=== PATIENT | male | born 1965 | race Caucasian/White ===

== ENCOUNTER → 2020-02-26 12:10 | Outpatient (CLI) | payer OTHER, SELFPAY ==
[2020-02-27 16:13] LABS: Covid-19 Nasal PCR Sendout Lex NOT DETECTED
== END ==
PROVIDERS: Visit Provider Internal Medicine Adolescent Medicine
DX: Z03.818 Encounter for observation for suspected exposure to other biological agents ruled out (principal)
CPT/HCPCS: U0004

== ENCOUNTER → 2020-03-26 17:43 | Outpatient (CLI) | payer OTHER, SELFPAY | PROVIDERS: PCP Emergency Medicine; Visit Provider Family Medicine | DX: Z20.828 Contact with and (suspected) exposure to other viral communicable diseases (principal) | CPT/HCPCS: U0003 ==

== ENCOUNTER → 2020-09-24 17:41 | Outpatient (CLI) | payer OTHER, SELFPAY ==
[2020-09-24 18:00] LABS: Basophils % 0.7 % (0.1-2.0); Eosinophils # 0.4 K/mm3 (0.0-0.4); Eosinophils % 5.6 % (0.1-12.0); Hematocrit 41.5 % (42.0-52.0); Lymphocytes # 1.8 K/mm3 (0.7-4.5); Lymphocytes % 27.8 % (10-50); Mean Corpuscular HGB Conc 33.9 g/dL (31.8-35.4); Mean Corpuscular Hemoglobin 29.9 pg (27.0-31.2); Mean Corpuscular Volume 88.3 fl (80-94); Mean Platelet Volume 7.5 fl (7.4-10.4); Monocytes # 0.5 K/mm3 (0.1-1.0); Neutrophils # 3.8 K/mm3 (1.8-7.8); Neutrophils % 57.9 % (37.0-80.0); Platelet Count 315 K/mm3 (142-424); White Blood Count 6.5 K/mm3 (4.8-10.8)
[2020-09-24 18:30] LABS: Alanine Aminotransferase 19 U/L (12-78); Albumin Level 4.2 g/dl (3.5-5.0); Alkaline Phosphatase 71 U/L (38-126); Aspartate Amino Transferase 23 U/L (17-59); Bilirubin,Indirect 0.3 mg/dL (0.0-0.9); Bilirubin,Total 0.3 mg/dl (0.2-1.3); Bilirubin,Unconjugated 0.3 mg/dL (0.0-1.1); Total Protein,Serum 6.4 g/dl (6.3-8.2)
[2020-10-03 10:41] LABS: Testosterone, Total, LC/MS 190.4 ng/dL (264.0-916.0); Testosterone,Free 2.4 pg/mL (7.2-24.0)
== END ==
PROVIDERS: Visit Provider Urology
DX: E34.9 Endocrine disorder, unspecified (principal); Z12.5 Encounter for screening for malignant neoplasm of prostate
CPT/HCPCS: 80076; 84402; 84403; 85025; G0103

== ENCOUNTER 2020-10-04 16:58 | Day surgery (SDC) | payer OTHER, SELFPAY ==
[2020-10-04] VITALS (17 sets, daily range): BP systolic 97–144; BP diastolic 49–88; PULSE 51–76; RESP 12–18; TEMP 36.4–36.9; O2SAT 90–99; BMI 27.9; BMI 28.7
--- NOTE | 2020-10-04 | IR_ITS ---
APPROVED REPORT Patient Location: Emergent Creative Intern: STERLING Thompson RT (R) PROCEDURES Left heart catheterization Left ventriculogram Selective coronary angiogram INDICATION Known coronary artery disease, Unstable angina Informed consent was obtained prior to the procedure. COMPLICATIONS NONE Estimated Blood Loss: LESS THAN 10 ML TECHNIQUE One percent lidocaine used to anesthetize the right anterior aspect of the wrist. The right radial artery was accessed via the Seldinger technique. A 6 Kittitian sheath was placed in the right radial artery. 2.5 mg of verapamil, 800 mcg of nitroglycerin, 1mg Lidocaine and 5000 U Heparin were given through the arterial sheath. A [email or web address] catheter was also used to perform left heart catheterization, left ventriculogram and selective coronary angiogram. At the end of the procedure the sheath was removed good hemostasis was achieved using Traclet band, patient was transferred to the postop holding area in stable condition. ANGIOGRAPHIC RESULTS The left main artery Has a smooth ostial 10 to 20% narrowing which may be more anatomical rather than atherosclerotic The left anterior descending artery Has mild proximal and mid vessel 10% luminal irregularities. There is a small mid vessel myocardial bridge during systole which compresses to 40% The circumflex artery Nondominant with mild 10% luminal irregularities The right coronary artery Is a large dominant vessel with a widely patent stent in the proximal segment with no evidence of in-stent restenosis with excellent proximal distal transitioning. The remaining vessel has mild vascular ectasia. Distally an Robert current is identified with no atherosclerotic plaque The SALDA[place]A ventriculogram reveals Normal 65% The left ventricular end-diastolic pressure 10 mmHg IMPRESSION Widely patent stent in the proximal dominant right coronary artery with no evidence of in-stent restenosis and excellent proximal distal transitioning Clinically inconsequential mid LAD myocardial bridge Mild vascular ectasia in the right coronary artery which is also clinically insignificant and clinically inconsequential Normal ejection fraction Normal left ventricular end-diastolic pressure PLAN 1. Continue medical management for coronary disease 2. Evaluation of noncardiac symptomatology Electronically signed by : Levi Morrow, 10/04/2020 18:06:51
--- NOTE | 2020-10-04 16:54 | ECG_ITS ---
APPROVED REPORT Exam: Resting ECG HR:62 bpm ECG Measurements Heart Rate 62 AXES NH 152 P 20 QRSd 84 QRS -16 QT 408 T 34 QTc 414 Conclusion Normal sinus rhythm Normal ECG Electronically signed by : Alexei Mortensen, 10/05/2020 07:40:49
--- NOTE | 2020-10-04 17:04 | XR_ITS ---
PROCEDURE: XR CHEST PORTABLE CLINICAL HISTORY: cough COMPARISON: CR XR CHEST 2V from 11/06/2019 FINDINGS: The cardiomediastinal silhouette and pulmonary vascularity are within normal limits. The lungs are clear without infiltrates, suspicious nodules, or pleural effusions. No acute bony abnormalities. IMPRESSION: No acute findings. Dictated by: Dr. Honorio Arora MD 10/05/2020 08:07 Dr. Honorio Arora MD in [place] 10/05/2020 08:07
--- NOTE | 2020-10-04 17:11 | HMH.EDCP ---
ED Disposition Clinical Impression: Unstable angina Disposition: Admitted As Inpatient Condition on Discharge: Serious - Critical Care Critical Care Time: No Attestation: On 10/04/20, the high probability of a clinically significant, sudden or life threatening deterioration of the following system(s) required my full and direct attention, intervention and personal management. The time I documented below is in addition to time spent performing reported procedures but includes the following listed in this critical care notation. Medical Decision Making - Medical Records Medical records reviewed: Yes: I reviewed the patient's medical records. - Julius Inquiry Pt receiving controlled substance: No Vital Signs: 10/04/20 16:58 10/04/20 17:38 Temperature 98.3 F 98.1 F Temperature Source Tympanic Oral Pulse Rate 67 Pulse Rate [Right] 60 Respiratory Rate 18 18 Blood Pressure 127/72 Blood Pressure [Right Arm] 144/88 H Blood Pressure Mean [Right Arm] 106 02 Sat by Pulse Oximetry 98 Oxygen Delivery Method Room Air Room Air - Lab Data Lab Results 10/04/20 17:00: WBC 9.3, RBC 5.28, Hgb 15.6, Hct 47.4, MCV 89.8, MCH 29.6, MCHC 33.0, RDW 14.6, Plt Count 338, MPV 7.2 L, Neut % (Auto) 61.0, Lymph % (Auto) 26.3, [place] % (Auto) 7.6, Eos % (Auto) 4.2, Baso % (Auto) 0.9, Neut # (Auto) 5.7, Lymph # (Auto) 2.5, [place] # (Auto) 0.7, Eos # (Auto) 0.4, Baso # (Auto) 0.1 10/04/20 17:00: PT 10.8, INR 0.91, APTT 25.0 10/04/20 17:00: Sodium 142, Potassium 3.9, Chloride 105, Carbon Dioxide 31 H, Anion Gap 9.9, BUN 9, Creatinine 0.90, Estimated Creat Clear 119, Estimated GFR 88, Est GFR ( Amer) 106, Glucose 111 H, Calcium 9.7, Total Bilirubin 0.5, AST 30, ALT 27, Alkaline Phosphatase 66, Troponin I < 0.01, NT-Pro-B Natriuret Pep 35.8, Total Protein 7.5, Albumin 4.8, Globulin 2.7, Albumin/Globulin Ratio 1.8, Lipase 293 Result diagrams: 10/04/20 17:00 10/04/20 17:00 Orders (Tests/Meds): ED MEDICATIONS Generic Name Dose Route Start Last Admin Trade Name Freq PRN Reason Stop Dose Admin Diphenhydramine HCl 50 mg 10/04/20 17:03 10/04/20 17:40 Diphenhydramine 50mg/Ml Vial IV 10/04/20 17:04 50 mg ONCE ONE Administration Fentanyl Citrate 25 mcg 10/04/20 17:03 10/04/20 17:59 Fentanyl 250mcg/5ml Vial IV 10/05/20 17:03 25 mcg Q3MINP PRN Administration Moderate to Severe Pain Fentanyl Citrate 50 mcg 10/04/20 17:03 Fentanyl 250mcg/5ml Vial IV 10/05/20 17:03 Q3MINP PRN Moderate to Severe Pain Flumazenil 0.2 mg 10/04/20 17:03 Flumazenil 0.1mg/Ml 5ml Vial IV 10/04/20 23:00 NEEDED PRN Sedation Heparin Sodium (Porcine) 10,000 unit 10/04/20 17:03 10/04/20 17:41 Heparin 1,000 Units/Ml 10ml Vial (Registrar Assistant) IV 10/04/20 21:03 5,000 unit NEEDED PRN Administration Emergency Box Consumer Education Specialist Heparin Sodium/Sodium Chloride 3,000 unit 10/04/20 17:03 10/04/20 17:41 Heparin 1,000 Units/500ml Ns (Registrar Assistant) IV 10/04/20 17:04 3,000 unit ONCE ONE Administration Sodium Chloride 1,000 mls @ 25 mls/hr 10/04/20 17:15 10/04/20 17:41 Sod Chlor 0.9% 1000ml Bag IV 10/05/20 17:03 25 mls/hr .Q25H TRAVIS Administration Lidocaine HCl 20 ml 10/04/20 17:03 10/04/20 17:47 Lidocaine 1% 5ml Pf Vial IJ 10/04/20 17:04 Not Given ONCE ONE Lidocaine HCl 20 ml 10/04/20 17:03 10/04/20 17:40 Lidocaine 1% 10ml Mdv IJ 10/04/20 17:04 10 ml ONCE ONE Administration Midazolam HCl 1 mg 10/04/20 17:03 Midazolam 2mg/2ml Vial IV 10/05/20 17:03 Q3MINP PRN Sedation Midazolam HCl 1 mg 10/04/20 17:03 10/04/20 17:59 Midazolam Hcl 1mg/1ml 5ml Vial IV 10/05/20 17:03 1 mg Q3MINP PRN Administration Sedation Naloxone HCl 0.4 mg 10/04/20 17:03 Naloxone 0.4mg/Ml Vial IV 10/05/20 17:03 Q5MINP PRN Decreased Respirations Nitroglycerin 800 mcg 10/04/20 17:03 10/04/20 17:40 Nitroglycerin 800mcg/8ml Syr (Registrar Assistant) IV
[2020-10-04 17:12] LABS: Basophils # 0.1 K/mm3 (0-0.2); Basophils % 0.9 % (0.1-2.0); Eosinophils # 0.4 K/mm3 (0.0-0.4); Eosinophils % 4.2 % (0.1-12.0); Hematocrit 47.4 % (42.0-52.0); Hemoglobin 15.6 g/dL (14.1-18.0); Lymphocytes # 2.5 K/mm3 (0.7-4.5); Lymphocytes % 26.3 % (10-50); Mean Corpuscular Hemoglobin 29.6 pg (27.0-31.2); Mean Corpuscular Volume 89.8 fl (80-94); Mean Platelet Volume 7.2 fl (7.4-10.4); Monocytes # 0.7 K/mm3 (0.1-1.0); Monocytes % 7.6 % (1.7-9.3); Neutrophils # 5.7 K/mm3 (1.8-7.8); Platelet Count 338 K/mm3 (142-424); Red Blood Count 5.28 M/mm3 (4.60-6.20); Red Cell Distribution Width 14.6 % (11.5-17.5); White Blood Count 9.3 K/mm3 (4.8-10.8)
[2020-10-04 17:15] LABS: Chloride 105 mmol/L (98-107); Potassium 3.9 mmoL/L (3.5-5.1); Sodium 142 mmol/L (136-145)
[2020-10-04 17:18] LABS: Alanine Aminotransferase 27 U/L (12-78); Albumin Level 4.8 g/dl (3.5-5.0); Albumin/Globulin Ratio 1.8 (1.1-1.8); Alkaline Phosphatase 66 U/L (38-126); Anion Gap 9.9 mEq/L (5-15); Aspartate Amino Transferase 30 U/L (17-59); Bilirubin,Total 0.5 mg/dl (0.2-1.3); Blood Urea Nitrogen 9 mg/dl (9-20); Calcium 9.7 mg/dl (8.4-10.2); Carbon Dioxide 31 mmol/L (22.0-30.0); Creatinine Clearance Estimated 119 mL/min (50-200); Estimated Glomerular Filt Rate 88 ml/min (>60); GFR (African American) 106 ML/MIN (>60); Globulin 2.7 g/dL (1.3-3.2); Glucose 111 mg/dl (74-100); Lipase 293 U/L (23-300); Total Protein,Serum 7.5 g/dl (6.3-8.2)
[2020-10-04 17:27] LABS: INR 0.91 (0.9-1.1); Prothrombin Time 10.8 seconds (10.1-12.5)
[2020-10-04 17:30] LABS: NT Pro Brain Natriuretic Pep. 35.8 pg/mL (0-125)
[2020-10-04 17:34] LABS: Troponin I < 0.01 ng/ml (0.00-0.034)
--- NOTE | 2020-10-04 18:50 | PC.NURSE ---
PER CHEMICAL PACKAGER STAFF, PT DOES NOT NEED TO BE ADMITTED PER MD. Nikolai LOVE RN (SALES LEADER) STATES SHE IS CONTACTING MD BRICEÑO.
--- NOTE | 2020-10-04 21:53 | PC.NURSE ---
Pt currently resting in bed at this time. Tracelet remains on at this time with 9 ml of air. Attempted to withdraw air out and incision site was noted to seep blood. VSS. No other concerns. Will continue to monitor.
[2020-10-05 00:25] VITALS: BP 103/63; PULSE 63; RESP 16; O2SAT 95
--- NOTE | 2020-10-05 01:16 | PC.NURSE ---
Tracelet was removed from pt after 0 ml of air remained. 2x2 and tegaderm applied to (R) radial cath site. No bleeding or hematoma noted. Immobilizer placed on (R) arm after pt got dressed into regular clothes. VS obtained and stable. Pt was assisted to WC and left floor at 0054 and assisted to passenger side of car. Significant other to drive.
--- NOTE | 2020-10-09 11:12 | HMH.CNCARD ---
History of Present Illness Consult date: 10/09/20 Requesting physician: Calvin Sprague Chief complaint: chest pain History of present illness: This is a 55 year old white male who presented to the ED with complaints of chest pain approximately 1 hour prior to arrival. this is a sudden onset of pressure in the substernal aspect of the chest. there was no radiation. associated with SOA. Known history of CAD with 1 stent in the past. he also states he has been having worsening SOA x1 week prior to the onset of angina. CP improved with 4 baby aspirin and 1 ntg SL tablet. nothing worsened pain. this was severe. denies fever, chills, n/v/d, pnd or orthopnea. denies edema or syncope. similar symptoms when he needed previous stenting. [facility] History I have reviewed the patient's past medical history: Yes Medical History: Reports:: Anxiety, Atherosclerotic Heart Disease, Coronary Artery Disease, Hyperlipidemia, Hypertension *Have you ever received a pneumonia vaccine?: No *Have you received a flu vaccine this season?: Yes Comment:: diverticulitis Other Surgeries: Yes: Cardiac Catheterization (1 stent- 06.21.2015), Other (sinus/nose surgery) Amputation: No - *Social History Last grade of school completed: Advanced degree Smoking Status: Never smoker Alcohol Intake Frequency:: holidays/special occasions only Substance Use Type: denies use *Occupational Status:: employed *Travel in the last 8 weeks: None Family Hx:: Heart Attack (father had MT at age 43) Meds Home Medications Medication Instructions Recorded Confirmed Type Atorvastatin Calcium [Lipitor 20mg 20 mg PO DAILY 10/04/20 10/04/20 History Tab] Sildenafil Citrate [Viagra] 25 mg PO NEEDED PRN 10/04/20 10/04/20 History Testosterone 200 mg IM DIRECTED 10/04/20 10/04/20 History Triazolam 0.25 mg PO NEEDED PRN 10/04/20 10/04/20 History diazePAM [diazePAM 5mg Tablet] 5 mg PO NEEDED PRN 10/04/20 10/04/20 History Allergies Allergy/AdvReac Type Severity Reaction Status Date / Time No Known Allergies Allergy Unverified 06/22/17 14:20 Exam Vital signs and Labs for Last 24 Hours: Temp Pulse Resp BP Pulse Ox 97.9 F 63 16 103/63 L 95 10/04/20 23:24 10/05/20 00:25 10/05/20 00:25 10/05/20 00:25 10/05/20 00:25 Narrative: EKG is SR with a rate of 62. - Constitutional no acute distress, average body habitus - *Routine HEENT Exam Head: Present: normocephalic, atraumatic Eye: Present: EOMI, PERRL ENT: Present: mucous membranes moist - *Routine Neck Exam Present: supple, full ROM, normal carotid upstroke. Absent: JVD, carotid bruit, lymphadenopathy - *Routine Respiratory Exam Present: CTA bilaterally - *Routine Cardiovascular Exam Present: RRR, Normal S1, Normal S2. Absent: murmur - *Routine Abdominal Exam Present: soft, normoactive bowel sounds. Absent: tenderness, distended - *Routine Extremities Exam Present: full ROM, pulses intact, normal capillary refill. Absent: cyanosis, clubbing, edema - *Routine Skin Exam Present: intact, warm. Absent: erythema, rash - *Routine Neurological Exam Present: alert, oriented X3, CN II-XII intact. Absent: sensory deficit, motor deficit - Routine Psychiatric Exam Present: normal affect, normal thought process Review of Systems - Review of Systems Review of systems:: pertinent systems reviewed and negative unless documented below - Constitutional Reports lack of energy - *Cardiovascular Reports chest pain, Reports chest pain at rest, Reports chest pain with activity, Reports shortness of breath, Reports shortness of breath with activity - *Respiratory Reports shortness of breath, Reports shortness of breath with activity - *Neurologic Denies headache(s) Assessment and Plan (1) Unstable angina Status: Acute Category: Medical Code(s): I20.0 - Unstable angina (2) SOB (shortness of breath) Status: Acute Category: Medical Code(s): R06.02 - Shortness of breath
== END 2020-10-04 17:24 ==
LOC: ER 17:24 → SDC 17:25 → 2ND 18:11 → SDC 08-03 02:03
PROVIDERS: Emergency Provider Emergency Medicine; Visit Provider Internal Medicine
DX: I25.110 Atherosclerotic heart disease of native coronary artery with unstable angina pectoris (principal); Z95.5 Presence of coronary angioplasty implant and graft; Z79.899 Other long term (current) drug therapy
CPT/HCPCS: 71045; 80053; 83690; 83880; 84484; 85025; 85610; 85730; 93005; 93458; 99152; 99203; C1725; C1769; G0463; J1644; Q9967

== ENCOUNTER 2021-08-05 12:29 | Emergency (ER) | payer OTHER, SELFPAY ==
[2021-08-05 12:36] VITALS: BP 143/81; PULSE 74; RESP 18; TEMP 37.1; O2SAT 95; BMI 27.3
--- NOTE | 2021-08-05 12:48 | HMH.EDABDPAI ---
ED Disposition Clinical Impression: Gastroenteritis, Abdominal cramping Disposition: Home, Self-Care Condition on Discharge: Good Instructions: DI for Acute Abdominal Pain Prescriptions: Dicyclomine HCl [Bentyl 10mg capsule] 10 mg PO QID PRN #30 cap PRN Reason: Cramping Transmission Status: Re[facility] Referrals: Jose Daniel Munoz MD [Primary Care Provider] - - Critical Care Critical Care Time: No Attestation: On 08/05/21, the high probability of a clinically significant, sudden or life threatening deterioration of the following system(s) required my full and direct attention, intervention and personal management. The time I documented below is in addition to time spent performing reported procedures but includes the following listed in this critical care notation. Medical Decision Making - Medical Records Medical records reviewed: Yes: I reviewed the patient's medical records. - Julius Inquiry Pt receiving controlled substance: No Vital Signs: 08/05/21 12:36 08/05/21 13:03 08/05/21 14:03 Temperature 98.8 F Temperature Source Oral Pulse Rate 76 77 Pulse Rate [Left Radial] 74 Respiratory Rate 18 Blood Pressure 127/75 135/80 Blood Pressure [Right Arm] 143/81 H Blood Pressure Mean [Right Arm] 101 Blood Pressure Source [Right Arm] Automatic Cuff Blood Pressure Position [Right Arm] Sitting 02 Sat by Pulse Oximetry 95 91 L 96 Oxygen Delivery Method Room Air Room Air Room Air 08/05/21 15:24 08/05/21 15:29 Temperature 98.2 F Temperature Source Oral Pulse Rate 71 68 Pulse Rate [Left Radial] Respiratory Rate 16 Blood Pressure 134/76 134/76 Blood Pressure [Right Arm] Blood Pressure Mean [Right Arm] Blood Pressure Source [Right Arm] Blood Pressure Position [Right Arm] 02 Sat by Pulse Oximetry 93 L Oxygen Delivery Method Room Air Room Air - Lab Data Lab Results 08/05/21 12:45: WBC 8.2, RBC 5.02, Hgb 15.7, Hct 46.6, MCV 92.7, MCH 31.2, MCHC 33.6, RDW 14.3, Plt Count 345, MPV 7.4, Neut % (Auto) 75.5, Lymph % (Auto) 12.3, Dare % (Auto) 8.1, Eos % (Auto) 3.5, Baso % (Auto) 0.7, Neut # (Auto) 6.2, Lymph # (Auto) 1.0, Dare # (Auto) 0.7, Eos # (Auto) 0.3, Baso # (Auto) 0.1 08/05/21 12:45: Sodium 136, Potassium 4.2, Chloride 106, Carbon Dioxide 25, Anion Gap 9.2, BUN 10, Creatinine 0.90, Estimated Creat Clear 119, Estimated GFR 87, Est GFR ( Amer) 106, Glucose 110 H, Calcium 8.8, Total Bilirubin 0.6, AST 38, ALT 30, Alkaline Phosphatase 61, Total Protein 6.8, Albumin 4.2, Globulin 2.6, Albumin/Globulin Ratio 1.6, Lipase 78 08/05/21 12:45: SARS-CoV-2 (PCR) Not detected, Influenza A Untype (PCR) Not detected, Influenza Type B (PCR) Not detected 08/05/21 13:10: Lactate 1.3 Result diagrams: 08/05/21 12:45 08/05/21 12:45 Orders (Tests/Meds): ED MEDICATIONS Discontinued Medications Generic Name Dose Route Start Last Admin Trade Name Freq PRN Reason Stop Dose Admin Dicyclomine HCl 20 mg 08/05/21 14:19 08/05/21 14:22 Dicyclomine 10mg Capsule PO 08/05/21 14:20 20 mg ONCE ONE Administration Hydromorphone HCl 1 mg 08/05/21 12:46 08/05/21 12:58 Hydromorphone 2mg/Ml Syringe IV 08/05/21 12:47 1 mg ONCE ONE Administration Sodium Chloride 1,000 mls @ 999 mls/hr 08/05/21 13:00 08/05/21 13:01 Sod Chlor 0.9% 1000ml Bag IV 08/05/21 14:00 Not Given .Q1H1M TRAVIS Sodium Chloride 500 mls @ 999 mls/hr 08/05/21 13:00 08/05/21 13:01 Sod Chlor 0.9% 1000ml Bag IV 08/05/21 13:30 Not Given .Q31M TRAVIS Sodium Chloride 2,000 mls @ 999 mls/hr 08/05/21 13:15 08/05/21 13:04 Sod Chlor 0.9% 1000ml Bag IV 08/05/21 15:15 999 mls/hr .Q2H1M TRAVIS Administration Metoclopramide HCl 10 mg 08/05/21 12:46 08/05/21 12:59 Metoclopramide Hcl 10mg/2ml Vial IVP 08/05/21 12:47 10 mg ONCE ONE Administration Ondansetron HCl 8 mg 08/05/21 12:46 08/05/21 12:58 Ondansetron 4mg/2ml Vial IV 08/05/21 12:47 8 mg ONCE
[2021-08-05 12:52] LABS: Basophils # 0.1 K/mm3 (0-0.2); Basophils % 0.7 % (0.1-2.0); Eosinophils # 0.3 K/mm3 (0.0-0.4); Eosinophils % 3.5 % (0.1-12.0); Hematocrit 46.6 % (42.0-52.0); Hemoglobin 15.7 g/dL (14.1-18.0); Lymphocytes % 12.3 % (10-50); Mean Corpuscular HGB Conc 33.6 g/dL (31.8-35.4); Mean Corpuscular Hemoglobin 31.2 pg (27.0-31.2); Mean Corpuscular Volume 92.7 fl (80-94); Mean Platelet Volume 7.4 fl (7.4-10.4); Monocytes # 0.7 K/mm3 (0.1-1.0); Monocytes % 8.1 % (1.7-9.3); Neutrophils # 6.2 K/mm3 (1.8-7.8); Neutrophils % 75.5 % (37.0-80.0); Platelet Count 345 K/mm3 (142-424); Red Blood Count 5.02 M/mm3 (4.60-6.20); Red Cell Distribution Width 14.3 % (11.5-17.5); White Blood Count 8.2 K/mm3 (4.8-10.8)
[2021-08-05 12:54] LABS: Chloride 106 mmol/L (98-107); Sodium 136 mmol/L (136-145)
[2021-08-05 12:55] LABS: Potassium 4.2 mmoL/L (3.5-5.1)
[2021-08-05 12:57] LABS: Alanine Aminotransferase 30 U/L (12-78); Alkaline Phosphatase 61 U/L (38-126); Anion Gap 9.2 mEq/L (5-15); Aspartate Amino Transferase 38 U/L (17-59); Bilirubin,Total 0.6 mg/dl (0.2-1.3); Blood Urea Nitrogen 10 mg/dl (9-20); Carbon Dioxide 25 mmol/L (22.0-30.0); Creatinine Clearance Estimated 119 mL/min (50-200); Estimated Glomerular Filt Rate 87 ml/min (>60); GFR (African American) 106 ML/MIN (>60); Lipase 78 U/L (23-300)
[2021-08-05 12:58] LABS: Albumin Level 4.2 g/dl (3.5-5.0); Albumin/Globulin Ratio 1.6 (1.1-1.8); Calcium 8.8 mg/dl (8.4-10.2); Globulin 2.6 g/dL (1.3-3.2); Glucose 110 mg/dl (74-100); Total Protein,Serum 6.8 g/dl (6.3-8.2)
[2021-08-05 13:03] VITALS: BP 127/75; PULSE 76; O2SAT 91
--- NOTE | 2021-08-05 13:09 | PC.NURSE ---
Lab at bedside
[2021-08-05 13:22] LABS: Coronavirus 19, PCR Not Detected (NotDetected); Influenza A, PCR Not Detected (NotDetected); Influenza B, PCR Not Detected (NotDetected)
[2021-08-05 13:32] LABS: Lactic Acid 1.3 mmol/L (0.7-2.1)
[2021-08-05 14:03] VITALS: BP 135/80; PULSE 77; O2SAT 96
[2021-08-05 15:24] VITALS: BP 134/76; PULSE 71; O2SAT 93
[2021-08-05 15:29] VITALS: BP 134/76; PULSE 68; RESP 16; TEMP 36.8; O2SAT 95
== END 2021-08-05 15:30 | disposition home or self-care (01) ==
PROVIDERS: Emergency Provider Emergency Medicine; PCP Emergency Medicine
DX: K52.9 Noninfective gastroenteritis and colitis, unspecified (principal); F41.9 Anxiety disorder, unspecified; I10 Essential (primary) hypertension
CPT/HCPCS: 36415; 80053; 83605; 83690; 85025; 96365; 96366; 99282; C9803; J2405; U0003; U0005

== ENCOUNTER 2022-07-22 10:14 | Day surgery (SDC) | payer OTHER, SELFPAY ==
[2022-07-22] VITALS (7 sets, daily range): BP systolic 100–142; BP diastolic 67–90; PULSE 72–94; RESP 16–18; TEMP 36.1–36.4; O2SAT 93–96; BMI 28.7
--- NOTE | 2022-07-22 11:19 | P.PN_ITS ---
[facility] Disclaimer: The information contained in this section may have been updated after the patient was seen, as this information can be updated by other users. Medical History (Updated 07/22/22 @ 10:55 by Greg Sheikh RN) CAD (coronary artery disease) HLD (hyperlipidemia) Insomnia Pancreatitis Surgical History (Updated 07/22/22 @ 10:56 by Greg Sheikh RN) History of sinus surgery History of surgery Family History (Updated 07/22/22 @ 10:57 by Greg Sheikh RN) Other Family history of coronary artery disease Family history of thyroid cancer Social History (Updated 07/22/22 @ 10:58 by Greg Sheikh RN) Smoking Status: Never smoker alcohol intake: never substance use type: denies use current occupational status: employed Travel in the last 8 weeks: Outside the [facility] Anesthesia Checklist Patient Identification Patient Identification: Arm Band Structural Data Admitted From: Home Planned Operative Procedure/s: colonoscopy Consent for Planned Operative Procedure(s) Verified: Yes Verified Documents: Surgical Consent and History and Physical NPO Status Verified Time NPO: 00:00 Additional verifications Anesthesia Reactions: No Airway Assessment C-Spine Mobility Assessed: Yes TMJ Mobility Assessed: Yes Dentition: Good Dentition Neurological Assessment Level of Consciousness: Awake and Alert Anesthesia Plan Anesthesia Risk discussed: Yes Anesthesia Plan: Verified ASA Class: II Anesthesia Type: MAC
--- NOTE | 2022-07-22 11:52 | P.PCN_ITS ---
Procedure: Date: 07/22/22 Patient Date of :: 1965 Procedure Performed:: Colonoscopy Indications:: The patient is a 57 year old who presents for surveillance colonoscopy for a history of polyps in the past. Performing Provider:: Dez Hurtado MD Referring Provider:: Jyothi Lira APRN Sedation:: See RN records Procedure:: After placing the patient in the left lateral decubitus position, the colonosco py was gently inserted into the rectum and under direct visualization advanced to the cecum which was identified by transillumination in the right lower quadrant, identification of the ileocecal valve, appendiceal orifice, and cecal strap. Color, texture, mucosa, and anatomy of the colon were carefully examined with the scope. Findings:: Anal canal: normal Rectum: Internal hemorrhoids Sigmoid colon: Sessile polyp 6 mm in size. Removed with hot snare polypectomy. Diverticulosis Descending colon: Two sessile polyps less than 5 mm in size. Removed with cold snare polypectomy. Diverticulosis Splenic flexure: normal Transverse colon: Diverticulosis Hepatic flexure: normal Ascending colon: Diverticulosis Cecum: normal Terminal ileum: not visualized Impression: Polyps of descending colon x 2 Polyp of sigmoid colon Extensive diverticulosis Recommendations:: Await pathology results Repeat colonoscopy in 3-5 years (3 years if all polyps are adenoma) Complications:: None Estimated blood obtained (mL): 0
== END 2022-07-22 13:00 | disposition home or self-care (01) ==
PROVIDERS: PCP Nurse Practitioner Family; Visit Provider Internal Medicine
PROC: 0DJD8ZZ Inspection of Lower Intestinal Tract, Via Natural or Artificial Opening Endoscopic (ICD-10-PCS; CPT 45378; principal; 2022-07-22 12:30)
DX: Z12.11 Encounter for screening for malignant neoplasm of colon (principal); D12.4 Benign neoplasm of descending colon; Z86.010 Personal history of colon polyps; K57.30 Diverticulosis of large intestine without perforation or abscess without bleeding; K64.8 Other hemorrhoids
CPT/HCPCS: 45385; J2704

== ENCOUNTER → 2022-08-07 06:28 | Outpatient (CLI) | payer OTHER, SELFPAY ==
--- NOTE | 2022-08-07 06:32 | NM_ITS ---
FINAL REPORT CLINICAL HISTORY: Right upper quad pain HAS TO BE WITH CCK 6:30 am 8.43 mci tc choletec 1.9 mcg of cck injected at 7:45 am though Lt ant no pain during cck neg u/s gb from [facility] [place] 04/20/22 FINDINGS: Sequential anterior projection images of the abdomen were obtained after the intravenous injection of 8.43 mCi technetium 99m Choletec. There is normal uptake of radiotracer by the liver. The bile ducts are visualized by 5 minutes. Gallbladder activity is seen by 5 minutes. Bowel activity is noted by 30 minutes. After 1 hour, 1.9 ?g of CCK was injected intravenously for calculation of gallbladder ejection fraction. The gallbladder ejection fraction is 99 %, which is within normal limits. IMPRESSION: No evidence of cystic duct or bile duct obstruction. Normal gallbladder ejection fraction of 99 %. Reviewed, Interpreted and Dictated by Archie Mcfarlane III, MD Transcribed by Oneida Fisher Authenticated and [facility]
== END ==
PROVIDERS: PCP Nurse Practitioner Family; Visit Provider Surgery
DX: R10.11 Right upper quadrant pain (principal)
CPT/HCPCS: 78227; A9537; J2805

== ENCOUNTER → 2022-08-17 09:58 | Outpatient (CLI) | payer OTHER, SELFPAY ==
--- NOTE | 2022-08-17 10:01 | NM_ITS ---
FINAL REPORT TECHNIQUE: 0.52 Millicuries of technetium 99m sulfur colloid was ingested with eggs, toast and water. CLINICAL HISTORY: right upper quad pain 10:15AM 0.52 MCI TC SULFUR COLLOID INJ INTO 2 EGGS, 2 PC OF TOAST AND WATER FINDINGS: GASTRIC EMPTYING SCAN Static images show normal emptying of the stomach into the small bowel. Based on the time activity curve, the estimated half-emptying time is 89 minutes. IMPRESSION: Normal gastric emptying study. Reviewed, Interpreted and Dictated by Amy Cassidy MD Transcribed by Marlon Ge Authenticated and [facility]
== END ==
PROVIDERS: PCP Nurse Practitioner Family; Visit Provider Surgery
DX: R10.11 Right upper quadrant pain (principal)
CPT/HCPCS: 78264; A9541

== ENCOUNTER → 2022-08-24 08:45 | Outpatient (CLI) | payer OTHER, SELFPAY ==
[2022-08-24 14:24] LABS: Basophils # 0.1 K/mm3 (0-0.2); Basophils % 0.9 % (0.1-2.0); Eosinophils # 0.3 K/mm3 (0.0-0.4); Eosinophils % 2.8 % (0.1-12.0); Hematocrit 46.4 % (42.0-52.0); Lymphocytes # 1.9 K/mm3 (0.7-4.5); Lymphocytes % 19.7 % (10-50); Mean Corpuscular HGB Conc 34.5 g/dL (31.8-35.4); Mean Corpuscular Hemoglobin 29.5 pg (27.0-31.2); Mean Corpuscular Volume 85.6 fl (80-94); Mean Platelet Volume 8.5 fl (7.4-10.4); Monocytes # 0.7 K/mm3 (0.1-1.0); Monocytes % 7.5 % (1.7-9.3); Neutrophils # 6.6 K/mm3 (1.8-7.8); Neutrophils % 69.1 % (37.0-80.0); Platelet Count 479 K/mm3 (142-424); Red Blood Count 5.42 M/mm3 (4.60-6.20); Red Cell Distribution Width 14.9 % (11.5-17.5); White Blood Count 9.6 K/mm3 (4.8-10.8)
[2022-08-24 14:27] LABS: Chol/HDL Ratio 2.5 (1-3.5); Cholesterol 95 mg/dl (140-200); HDL Cholesterol 38 mg/dl (40-60); Triglycerides 115 mg/dl (30-150); VLDL Cholesterol 23 mg/dL (0-40)
[2022-08-24 14:28] LABS: Alanine Aminotransferase 26 U/L (12-78); Albumin Level 4.5 g/dl (3.5-5.0); Albumin/Globulin Ratio 1.9 (1.1-1.8); Alkaline Phosphatase 75 U/L (38-126); Amylase 99 U/L (30-110); Anion Gap 10.4 mEq/L (5-15); Aspartate Amino Transferase 30 U/L (17-59); Bilirubin,Total 0.6 mg/dl (0.2-1.3); Blood Urea Nitrogen 17 mg/dl (9-20); Carbon Dioxide 26 mmol/L (22.0-30.0); Chloride 105 mmol/L (98-107); Estimated Glomerular Filt Rate 100 ml/min (>60); GFR (African American) 121 ML/MIN (>60); Globulin 2.4 g/dL (1.3-3.2); Glucose 85 mg/dl (74-100); Lipase 276 U/L (23-300); Potassium 4.4 mmoL/L (3.5-5.1); Sodium 137 mmol/L (136-145); Total Protein,Serum 6.9 g/dl (6.3-8.2)
[2022-08-24 14:38] LABS: Direct LDL Cholesterol 41.54 mg/dL (100-129)
[2022-08-24 14:45] LABS: 25-OH Vitamin D, Total 33.2 ng/mL (30-100)
[2022-08-24 14:46] LABS: Triiodothryronine (T3) Uptake 30 % (23.5-40.5)
[2022-08-24 14:59] LABS: Prostate Specific Ag Screen 2.9 ng/ml (0.0-4.0)
[2022-08-24 15:01] LABS: Thyroid Stimulating Hormone 2.66 uIU/mL (0.465-4.68)
[2022-08-24 15:08] LABS: Hemoglobin A1C 5.4 % (4.0-6.0)
[2022-08-24 15:39] LABS: Free Thyroxine Index 2.5 ug/dL (5.93-13.13); T4 (Thyroxine) 8.3 ug/dl (5.53-11.0)
[2022-08-30 02:24] LABS: Testosterone, Total, LC/MS 159.3 ng/dL (264.0-916.0); Testosterone,Free 2.6 pg/mL (7.2-24.0)
== END ==
PROVIDERS: PCP Nurse Practitioner Family; Visit Provider Surgery
DX: R10.11 Right upper quadrant pain (principal); E04.1 Nontoxic single thyroid nodule; E78.5 Hyperlipidemia, unspecified; I25.10 Atherosclerotic heart disease of native coronary artery without angina pectoris; R53.83 Other fatigue; K85.90 Acute pancreatitis without necrosis or infection, unspecified; Z80.8 Family history of malignant neoplasm of other organs or systems; Z95.5 Presence of coronary angioplasty implant and graft; Z12.5 Encounter for screening for malignant neoplasm of prostate
CPT/HCPCS: 80053; 80061; 82150; 82306; 83036; 83690; 84402; 84403; 84436; 84443; 84479; 85025; G0103

== ENCOUNTER 2022-08-27 07:35 | Day surgery (SDC) | payer OTHER, SELFPAY ==
[2022-08-26 09:15] VITALS: BMI 29.2
[2022-08-27] VITALS (13 sets, daily range): BP systolic 113–154; BP diastolic 69–91; PULSE 50–72; RESP 15–18; TEMP 36.2–43; O2SAT 93–97
--- NOTE | 2022-08-27 09:20 | EXP.ANES.CKL ---
[facility] Disclaimer: The information contained in this section may have been updated after the patient was seen, as this information can be updated by other users. Medical History CAD (coronary artery disease) HLD (hyperlipidemia) Insomnia Pancreatitis Surgical History History of colonoscopy History of sinus surgery History of surgery Family History Other Family history of coronary artery disease Family history of thyroid cancer Social History Smoking Status: Never smoker alcohol intake: never substance use type: denies use current occupational status: employed Travel in the last 8 weeks: Outside the [facility] Anesthesia Checklist Patient Identification Patient Identification: Arm Band Structural Data Admitted From: Home Planned Operative Procedure/s: Laparoscopic Cholecystectomy Consent for Planned Operative Procedure(s) Verified: Yes Verified Documents: Surgical Consent and History and Physical NPO Status Verified Time NPO: 00:00 Additional verifications Anesthesia Reactions: No Hx Blood Transfusions: No Blood Transfusion Reaction: No Airway Assessment C-Spine Mobility Assessed: Yes TMJ Mobility Assessed: Yes Dentition: Good Dentition Neurological Assessment Level of Consciousness: Awake and Alert Anesthesia Plan Anesthesia Risk discussed: Yes Anesthesia Plan: Verified ASA Class: III Anesthesia Type: General
--- NOTE | 2022-08-27 10:16 | P.OP_ITS ---
Date of procedure: 08/27/22 Pre-op Diagnosis:: Biliary dyskinesia Umbilical hernia Post-op Diagnosis:: Chronic cholecystitis Umbilical hernia Procedure performed:: Laparoscopic cholecystectomy Surgeon:: Jewel Spangler MD GUM SCORING MACHINE OPERATOR:: Jean Pierre Thomas Anesthesia: GETNan Estimated blood loss (mL): 15 Operative findings:: Umbilical hernia utilized as 12 mm trocar site (closed as trocar site) Significant infundibular thickening and soft tissue edema Operative note:: After informed consent was obtained, the patient was taken to the operating room and placed in the supine position. General anesthesia was induced and the abdomen was prepped and draped in a sterile fashion. After infiltration with local anesthetic an infraumbilical incision was made. A Veress needle was placed in position. The abdomen was insufflated. A 12 mm optical trocar was placed in position. Under direct visualization, a 5 mm trocar was placed in the subxiphoid position and 2 additional 5 mm trocars were placed in the right upper quadrant. The gallbladder was elevated up and over the liver margin. The tissue around the cystic duct was carefully dissected. Significant infundibular thickening and soft tissue edema noted. 4 clips were placed proximally and the duct was transected with harmonic ramses. The cystic artery was controlled in similar manner. Harmonic ramses were then utilized to dissect the gallbladder away from the liver margin. The gallbladder was placed in a retrieval bag and removed through the umbilical trocar site. The right upper quadrant was thoroughly irrigated. No active bleeding or bile leak was noted. Fascia at the umbilical trocar site/hernia was reapproximated utilizing 0 Ethibond. The remaining trocars were removed. All wounds were irrigated and skin was closed with 4-0 Monocryl in a mattress fashion to facilitate hemostasis. Dressings were applied. The patient's anesthetic agents were reversed and extubation was completed prior to transfer to recovery in stable condition. Condition: stable Disposition: PACU Specimens:: Gallbladder and contents Complications:: No immediate
--- NOTE | 2022-08-27 10:28 | P.PNANES_ITS ---
[facility] Anesthesia Record Part I Anesthesia Record I Intake, IV Amount: 1,200 Estimated blood loss (mL): 10 Urine output (mL): 0 Blood Products used (#): none Blood Pressure: 154/91 SaO2: 95 Pulse Rate: 62 Respiratory Rate: 16 Temperature: 97.1 F Patient is:: Drowsy and Stable Stable to PACU at:: 10:20
--- NOTE | 2022-08-27 12:40 | P.PNANES_ITS ---
[facility] Anesthesia Record Part II Anesthesia Record Part II Discharge Time: 11:00 Destination: Surgical Day Care (OP Surgery) PACU nurse assessment reviewed?: Yes Patient Condition:: Good Anesthesia Complications:: None Swallowing reflex intact?: Yes Cyanosis?: No Blood Pressure: 126/72 Pulse Rate: 53 Temperature: 97.5 F Mental Status: Alert & Oriented Pain level:: 6 Nausea and/or vomitting:: None Intake, IV Amount: 0
== END 2022-08-27 11:55 | disposition home or self-care (01) ==
PROVIDERS: PCP Nurse Practitioner Family; Visit Provider Surgery
PROC: 0FT44ZZ Resection of Gallbladder, Percutaneous Endoscopic Approach (ICD-10-PCS; CPT 47562; principal; 2022-08-27 09:00)
DX: K81.1 Chronic cholecystitis (principal); K42.9 Umbilical hernia without obstruction or gangrene; Z79.899 Other long term (current) drug therapy
CPT/HCPCS: 47562; 96374; J2405; J2710

== ENCOUNTER → 2023-06-16 10:25 | Outpatient (POV) | payer OTHER, SELFPAY | PROVIDERS: PCP Nurse Practitioner Family; Visit Provider Specialist/Technologist | DX: Z00.00 Encounter for general adult medical examination without abnormal findings (principal) ==

== ENCOUNTER 2023-10-09 22:07 | Observation (INO) | payer OTHER, SELFPAY ==
[2023-10-09 22:08] VITALS: BP 202/110; BP 206/103; PULSE 72; RESP 20; TEMP 36.5; O2SAT 97; BMI 27.1
[2023-10-09 22:13] VITALS: BP 206/123; PULSE 72; O2SAT 96
--- NOTE | 2023-10-09 22:18 | XR_ITS ---
PROCEDURE INFORMATION: Exam: XR Chest Exam date and time: 10/09/2023 10:23 PM Age: 58 years old Clinical indication: Other: Spigastric pain; Additional info: Spigastric pain, syncope TECHNIQUE: Imaging protocol: Radiologic exam of the chest. Views: 1 view. COMPARISON: CR XR CHEST PORTABLE 10/04/2020 5:09 PM FINDINGS: Lungs: Unremarkable. No consolidation. Pleural spaces: Unremarkable. No pleural effusion. No pneumothorax. Heart/Mediastinum: Unremarkable. No cardiomegaly. Bones/joints: Unremarkable. IMPRESSION: Stable chest x-ray with no acute disease.
[2023-10-09 22:28] LABS: Basophils # 0.1 K/mm3 (0-0.2); Basophils % 0.5 % (0.1-2.0); Eosinophils % 0.4 % (0.1-12.0); Hematocrit 54.6 % (42.0-52.0); Lymphocytes # 0.4 K/mm3 (0.7-4.5); Lymphocytes % 3.6 % (10-50); MANUAL DIFFERENTIAL MANUAL DIFFERENTIAL (MANUAL DIFF); Mean Corpuscular HGB Conc 32.9 g/dL (31.8-35.4); Mean Corpuscular Hemoglobin 30.9 pg (27.0-31.2); Monocytes # 0.5 K/mm3 (0.1-1.0); Monocytes % 3.7 % (1.7-9.3); Neutrophils # 11.3 K/mm3 (1.8-7.8); Neutrophils % 91.9 % (37.0-80.0); Platelet Count 485 K/mm3 (142-424); Red Blood Count 5.81 M/mm3 (4.60-6.20); Red Cell Distribution Width 14.6 % (11.5-17.5); White Blood Count 12.3 K/mm3 (4.8-10.8)
[2023-10-09] MEDS: KETOROLAC 30MG/ML VIAL 15 MG IV (22:29)
[2023-10-09] MEDS: HYDROMORPHONE 2MG/ML SYRINGE 1 MG IV (22:30)
[2023-10-09] MEDS: LACTATED RINGERS 1000ML 1,000 ML 999 ML IV ×2 (22:31→23:33)
[2023-10-09] MEDS: ONDANSETRON 4MG/2ML VIAL 4 MG IV (22:32)
[2023-10-09 22:33] LABS: Chloride 102 mmol/L (98-107); Potassium 4.3 mmoL/L (3.5-5.1); Sodium 143 mmol/L (136-145)
--- NOTE | 2023-10-09 22:33 | ECG_ITS ---
APPROVED REPORT Exam: Resting ECG HR:73 bpm ECG Measurements Heart Rate 73 AXES OH 142 P 57 QRSd 88 QRS -32 QT 374 T 20 QTc 400 Conclusion SINUS RHYTHM WITH SINUS ARRHYTHMIA Nonspecific T wave inversions Electronically signed by : ALLYSON DOWNING, 10/09/2023 23:34:49
[2023-10-09 22:35] LABS: Alanine Aminotransferase 43 U/L (12-78); Alkaline Phosphatase 78 U/L (38-126); Anion Gap 12.3 mEq/L (5-15); Aspartate Amino Transferase 49 U/L (17-59); Bilirubin,Total 0.6 mg/dl (0.2-1.3); Blood Urea Nitrogen 20 mg/dl (9-20); Carbon Dioxide 33 mmol/L (22.0-30.0); Creatinine Clearance Estimated 115 mL/min (50-200); Estimated Glomerular Filt Rate 87 ml/min (>60); GFR (African American) 105 ML/MIN (>60); Lipase 186 U/L (23-300)
[2023-10-09 22:36] LABS: Albumin Level 4.6 g/dl (3.5-5.0); Albumin/Globulin Ratio 1.5 (1.1-1.8); Calcium 10.2 mg/dl (8.4-10.2); Globulin 3.1 g/dL (1.3-3.2); Glucose 142 mg/dl (74-100); Lactic Acid 3.3 mmol/L (0.7-2.1); Total Protein,Serum 7.7 g/dl (6.3-8.2)
[2023-10-09 22:44] LABS: Lymphocytes % 4 % (10-50); Monocytes % 2 % (2-9); Neutrophils % 94 % (42-76); Platelet Estimate Normal; RBC Morphology Normal; Total Cells Counted 100
--- NOTE | 2023-10-09 22:45 | ED_ITS ---
Discharge Plan Disposition Chief Complaint: Abdominal Pain Prescriptions Prescriptions: No Action bupropion HCl [Wellbutrin SR] 150 mg tablet sustained-release 12 hr 150 mg PO BID Qty: 180 3RF famotidine [Pepcid] 20 mg tablet 20 mg PO BID Qty: 60 2RF mirtazapine [Remeron] 15 mg tablet 15 mg PO DAILY Qty: 30 2RF clonidine HCl 0.2 mg tablet 0.4 mg PO HS Qty: 180 3RF sildenafil 100 mg tablet 100 mg PO DAILY PRN (Reason: sexual activity) Qty: 30 12RF Rx Instructions: administer 30 minutes to 4 hours before activity testosterone 20.25 mg/1.25 gram (1.62 %) gel in metered-dose pump 2 pump topical DAILY Qty: 75 3RF testosterone cypionate 200 mg/mL oil 100 mg IM WEEKLY Qty: 4 5RF zolpidem [Ambien] 10 mg tablet 10 mg PO HS PRN (Reason: insomnia) Qty: 30 5RF zolpidem [Ambien CR] 12.5 mg tablet,ext release multiphase 12.5 mg PO HS Qty: 30 5RF hydroxyzine HCl 50 mg tablet 50 mg PO BID PRN (Reason: itching) Qty: 90 2RF prochlorperazine maleate [Compazine] 10 mg tablet 10 mg PO TID PRN (Reason: nausea and vomiting) Qty: 90 0RF hydrocodone-acetaminophen 10-325 mg tablet 1 tab PO Q6H PRN (Reason: pain) Qty: 12 0RF ondansetron 4 mg tablet,disintegrating 4 mg PO Q6H Qty: 30 0RF pantoprazole [Protonix] 40 mg tablet,delayed release (DR/EC) 40 mg PO DAILY Qty: 90 3RF atorvastatin 20 MG tablet 20 mg PO DAILY testosterone 20.25 mg/1.25 gram (1.62 %) gel in metered-dose pump 2 pump topical DAILY Rx Instructions: apply 1 pump amount over max area of EACH upper arm and shoulder losartan 100 mg tablet 100 mg PO DAILY Referrals Follow up/Referrals: Bang Lira APRN [Primary Care Provider] - See instructions Instructions Patient Instructions: DI for Acute Abdominal Pain Discharge ED Provider: Yenny Mcmahon General Adult HPI General Chief complaint: Abdominal Pain Stated complaint: vomiting, abd pain Time Seen by Provider: 10/09/23 22:10 Mode of Arrival: Wheelchair Source of Information: Patient Limitations: No Limitations Description of Symptoms (Recalled from ER Triage Doc. by RN): Pt arrives with severe upper gastric pain that began on Wednesday. Pt state she has multiple episodes of vomiting as well as 2 syncope episodes witnessed by spouse. Abrasion to forhead from fall, denies any blood thinners. Hx of cardiac stents, denies chest pain at this time. Pt hypertensive unable to tolerate Losartan at home. History of Present Illness HPI narrative: Is a 58-year-old male with history of hypertension, hyperlipidemia, pancreatitis status postcholecystectomy, CAD presenting with epigastric abdominal pain. Patient states he has been having pain for the last for 5 days. Associated with numerous episodes of vomiting is nonbloody, nonbilious. Patient stopping bowel movements and passing gas. No fevers or chills. Patient states that the pain is severe, 10 out of 10, epigastric, does not radiate, not made better or worse by anything in particular. Unable to tolerate any p.o. intake for the past 4 days. States that he also has an abrasion on his forehead from syncopal episode associated with the symptoms. Please note that above description of symptoms, in this electronic medical record under categorization of recalled from ER triage doctor by RN are reflective of an initial nursing assessment, however, is not reflective of my full history and physical exam that was personally taken and clarified. Consequentially, this preceding description of symptoms, which may include the patient's categorized chief complaint in the EMR, do not reflect my personal clinical impression, and the ultimate description of history of present illness and patient stated complaints should be deferred to this section of the note. Unless stated otherwise or congruent with this section of the note, additional signs, symptoms, or incongruence should be interpreted as inaccurate with my clinical impression. Related Data Home Medications Medication Instructions Recorded Confirmed atorvastatin 20 mg tablet 20 mg PO DAILY Hyperlipidemia 10/04/20 06/16/23 testosterone 2 pump topical DAILY Supplement 07/22/22 06/16/23 losartan 100 mg tablet 100 mg PO DAILY hld 08/26/22 06/16/23 Previous Rx's Medication Instructions Recorded bupropion HCl 150 mg tablet,12 hr 150 mg PO BID mood #180 ea 12/02/22 sustained-release (Wellbutrin SR) famotidine 20 mg tablet (Pepcid) 20 mg PO BID #60 tabs 05/18/23 mirtazapine 15 mg tablet (Remeron) 15 mg PO DAILY #30 tabs 07/29/23 clonidine HCl 0.2 mg tablet 0.4 mg (2 x 0.2 mg) PO HS #180 tabs 07/30/23 sildenafil 100 mg tablet 100 mg PO DAILY PRN sexual 07/30/23 activity #30 tabs testosterone 2 pump topical DAILY #75 grams 07/30/23 testosterone cypionate 200 mg/mL 100 mg (0.5 mL) IM WEEKLY 07/30/23 intramuscular oil Supplement #4 mL zolpidem 10 mg tablet (Ambien) 10 mg PO HS PRN insomnia #30 tabs 07/30/23 hydroxyzine HCl 50 mg tablet 50 mg PO BID PRN itching #90 tabs 09/28/23 zolpidem 12.5 mg tablet,extended 12.5 mg PO HS #30 tabs 09/28/23 release,multiphase (Ambien CR) hydrocodone 10 mg-acetaminophen 1 tab PO Q6H PRN pain #12 tabs 10/05/23 325 mg tablet ondansetron 4 mg disintegrating 4 mg PO Q6H nausea #30 tabs 10/05/23 tablet pantoprazole 40 mg tablet,delayed 40 mg PO DAILY #90 tabs 10/05/23 release (Protonix) prochlorperazine maleate 10 mg 10 mg PO TID PRN nausea and 10/05/23 tablet (Compazine) vomiting #90 tabs Allergies Allergy/AdvReac Type Severity Reaction Status Date / Time No Known Allergies Allergy Verified 06/16/23 10:25 [facility] Disclaimer: The information contained in this section may have been updated after the patient was seen, as this information can be updated by other users. Medical History (Updated 06/16/23 @ 10:34 by Isa Rodríguez APRN) High frequency hearing loss of both ears Sensorineural hearing loss Pancreatitis Insomnia HLD (hyperlipidemia) CAD (coronary artery disease) Surgical History History of laparoscopic cholecystectomy History of colonoscopy History of surgery History of sinus surgery Family History Other Family history of coronary artery disease Family history of thyroid cancer Social History Smoking Status: Never smoker alcohol intake: never substance use type: denies use current occupational status: employed Travel in the last 8 weeks: Outside the [facility] ROS Obtained: Yes All systems reviewed & no additional complaints except as documented Physical Exam General General appearance: alert Head Head exam: normocephalic Eye Eye exam: Present normal appearance, PERRL and EOMI ENT ENT exam: Present mucous membranes moist Neck Neck exam: Present normal inspection, full ROM and trachea midline Respiratory Respiratory exam: Absent respiratory distress, wheezes, stridor, accessory muscle use or prolonged expiratory phase Cardiovascular Cardiovascular exam: Present normal rhythm and tachycardia Abdominal Exam Abdominal exam: Present soft, distention, tenderness and guarding; Absent rebound or rigidity Abdominal tenderness: Present epigastrium, diffuse and severe Extremities Exam Extremities exam: Absent edema Neurological Exam Neurological exam: Present alert, oriented X3, CN II-XII intact and normal gait; Absent motor sensory deficit Skin Skin exam: Present warm and dry; Absent diaphoresis or erythema Medical Decision Making Medical Records Medical records reviewed: Yes I reviewed the patient's medical records. Julius Inquiry Pt receiving controlled substance: No Julius was queried for this patient: No Vital Signs: 10/09/23 22:08 10/09/23 23:07 Temperature 97.7 F 97.7 F Temperature Source Oral Oral Pulse Rate 59 L Pulse Rate [Right] 72 Respiratory Rate 20 18 Blood Pressure [Left Arm] 202/110 H Blood Pressure [Right Arm] 206/103 H Blood Pressure Mean [Left Arm] 140 Blood Pressure Mean [Right Arm] 137 Blood Pressure Source [Left Arm] Manual Cuff/ Auscultation Blood Pressure Source [Right Arm] Automatic Cuff 02 Sat by Pulse Oximetry 97 95 Oxygen Delivery Method Room Air Room Air Lab Data Lab Results 10/09/23 22:15: WBC 12.3 H, RBC 5.81, Hgb 18.0, Hct 54.6 H, MCV 94.0, MCH 30.9, MCHC 32.9, RDW 14.6, Plt Count 485 H, MPV 7.0 L, Neut % (Auto) 91.9 H, Lymph % (Auto) 3.6 L, Campbell % (Auto) 3.7, Eos % (Auto) 0.4, Baso % (Auto) 0.5, Neut # (Auto) 11.3 H, Lymph # (Auto) 0.4 L, Campbell # (Auto) 0.5, Eos # (Auto) 0.0, Baso # (Auto) 0.1, Total Counted 100, Neutrophils % (Manual) 94 H, Lymphocytes % (Manual) 4 L, Monocytes % (Manual) 2, Platelet Estimate Normal, RBC Morphology Normal, Sodium 143, Potassium 4.3, Chloride 102, Carbon Dioxide 33 H, Anion Gap 12.3, BUN 20, Creatinine 0.90, Estimated Creat Clear 115, Estimated GFR 87, Est GFR ( Amer) 105, Glucose 142 H, Lactate 3.3 H, Calcium 10.2, Total Bilirubin 0.6, AST 49, ALT 43, Alkaline Phosphatase 78, Troponin I < 0.01, N T-Pro-B Natriuret Pep 255 H, Total Protein 7.7, Albumin 4.6, Globulin 3.1, Albumin/Globulin Ratio 1.5, Lipase 186 10/09/23 22:15 10/09/23 22:15 Orders (Tests/Meds): ED MEDICATIONS Generic Name Dose Route Start Last Admin Trade Name Freq PRN Reason Stop Dose Admin Lactated Ringer's 1,000 mls @ 999 mls/hr 10/09/23 23:26 10/09/23 23:33 Lactated Ringer's 1000 Ml Bag IV 10/10/23 00:26 999 mls/hr .Q1H1M ONE Administration Sodium Chloride 10 ml 10/09/23 23:24 10/09/23 23:25 Sodium Chloride 0.9% 10ml Syr (Rad Only) IV 11/08/23 23:23 10 ml NEEDED PRN Administration Maintain IV Site Discontinued Medications Generic Name Dose Route Start Last Admin Trade Name Freq PRN Reason Stop Dose Admin Hydromorphone HCl 1 mg 10/09/23 22:23 10/09/23 22:30 Hydromorphone 2mg/Ml Syringe IV 10/09/23 22:24 1 mg ONCE ONE Administration Hydromorphone HCl 2 mg 10/09/23 23:26 10/09/23 23:33 Hydromorphone 2mg/Ml Syringe IV 10/09/23 23:27 2 mg ONCE ONE Administration Lactated Ringer's 1,000 mls @ 999 mls/hr 10/09/23 22:23 10/09/23 22:31 Lactated Ringer's 1000 Ml Bag IV 10/09/23 23:23 999 mls/hr .Q1H1M ONE Administration Iopamidol 75 ml 10/09/23 23:24 10/09/23 23:25 Iopamidol-370 (76%);100ml Bottle IV 10/09/23 23:25 75 ml ONCE ONE Administration Ketorolac Tromethamine 15 mg 10/09/23 22:23 10/09/23 22:29 Ketorolac 30mg/Ml Vial IV 10/09/23 22:24 15 mg ONCE ONE Administration Nitroglycerin 0.4 mg 10/09/23 22:18 Nitroglycerin 0.4mg Sl Tablet SL 11/08/23 22:17 Q5MINP PRN Chest Pain Ondansetron HCl 4 mg 10/09/23 22:25 10/09/23 22:32 Ondansetron 4mg/2ml Vial IV 10/09/23 22:26 4 mg ONCE ONE Administration ORDERS Category Date Time Status CT abdomen pelvis w con Stat Cat Scan 10/09/23 22:59 Taken CXR --portable [XR chest portable] Stat Exams 10/09/23 22:18 Completed CBC w/Auto Diff [Complete Blood Count Auto Diff] Stat Lab 10/09/23 22:15 Completed CMP [Comprehensive Metabolic Panel] Stat Lab 10/09/23 22:15 Completed Lactic Acid Stat Lab 10/09/23 22:15 Completed Lipase Stat Lab 10/09/23 22:15 Completed NT Pro Brain Natriuretic Pep. Stat Lab 10/09/23 22:15 Completed Trop I [Troponin I] Stat Lab 10/09/23 22:15 Completed Troponin I Q3H Lab 10/10/23 01:30 Ordered Troponin I Q3H Lab 10/10/23 04:30 Ordered Blood Culture Stat Micro 10/09/23 23:01 Received Medical Decision Narrative: Is a 58-year-old male with history of hypertension, hyperlipidemia, pancreatitis status postcholecystectomy, CAD presenting with epigastric abdominal pain. Patient states he has been having pain for the last for 5 days. Associated with numerous episodes of vomiting is nonbloody, nonbilious. Patient stopping bowel movements and passing gas. No fevers or chills. Patient states that the pain is severe, 10 out of 10, epigastric, does not radiate, not made better or worse by anything in particular. Unable to tolerate any p.o. intake for the past 4 days. States that he also has an abrasion on his forehead from syncopal episode associated with the symptoms. History was obtained via conversation with patient. On arrival, patient hemodynamically stable, alert, oriented x4, appropriate, GCS 15, moving all extremities spontaneously, pupils equal and reactive to light. Full physical exam performed and significant for 58-year-old male in moderate to severe distress secondary to abdominal pain. Abdomen is soft, but tender and distended. Voluntary guarding. No overlying skin changes. No flank tenderness. Tachycardic and hypertensive. Differential includes ACS, NM, PUD, gastritis, enteritis, gastroenteritis, pancreatitis, SBO, colitis, diverticulitis, nephrolithiasis, UTI, cholecystitis, choledocholithiasis, appendicitis, torsion, hepatitis, aortic pathology, mesenteric ischemia among others. Patient was given 1 mg Dilaudid, Zofran, fluids, Toradol for symptomatic management and correction of underlying abnormalities. Workup independently interpreted and significant for leukocytosis 12.3, lactate 3.3. Nonactionable chemistry overall. Troponin negative, BNP only mildly elevated. Lipase negative. CT abdomen pelvis independently interpreted. He does have multiple lesions in his liver, no obvious evidence of perforation or bowel abnormality. Final read pending at time of handoff to oncoming physician. See radiology read for full review of final results. Independent interpretation of EKG shows sinus rhythm, no ST or T wave changes concerning for acute ischemia. Nondiagnostic overall. DC, QRS, QT intervals within normal limits. On reevaluation, patient feeling little better, but still in significant pain. More meds to be administered. Critical Care Critical Care Time Critical Care Time: No
[2023-10-09 22:48] LABS: NT Pro Brain Natriuretic Pep. 255 pg/mL (0-125); Troponin I < 0.01 ng/ml (0.00-0.034)
--- NOTE | 2023-10-09 22:58 | PC.NURSE ---
Blood Cultures being drawn at this time, pt spouse at bedside, pt states his pain is better but still there 10/12
--- NOTE | 2023-10-09 22:59 | CT_ITS ---
PROCEDURE INFORMATION: Exam: CT Abdomen And Pelvis With Contrast Exam date and time: 10/09/2023 11:09 PM Age: 58 years old Clinical indication: Abdominal pain; Additional info: Abd pain TECHNIQUE: Imaging protocol: Computed tomography of the abdomen and pelvis with contrast. Radiation optimization: All CT scans at this facility use at least one of these dose optimization techniques: automated exposure control; mA and/or kV adjustment per patient size (includes targeted exams where dose is matched to clinical indication); or iterative reconstruction. Contrast material: ISOVUE; Contrast volume: 370 ml; Contrast route: IV; COMPARISON: NM GASTRIC EMPTYING STUDY 08/17/2022 1:11 PM FINDINGS: Lungs: Lung bases are clear. Liver: Multiple hepatic cysts are noted throughout the liver. Liver otherwise unremarkable. Gallbladder and bile ducts: Status post cholecystectomy. No evident bile duct dilatation allowing for prior cholecystectomy. Pancreas: Normal. No ductal dilation. Spleen: Normal. No splenomegaly. Adrenal glands: Normal. No mass. Kidneys and ureters: 1 mm nonobstructing stone inferior right kidney and 4 mm nonobstructing stone superior left kidney. Bilateral renal subcentimeter low-density renal lesions are noted too small to characterize but likely cysts. No follow-up of these lesions advised. Kidneys and ureters otherwise unremarkable with no obstructing stones or uropathy. Stomach and bowel: Extensive diverticula throughout the colon. Colon otherwise unremarkable with no evidence of diverticulitis. GI tract structures otherwise unremarkable with no evident wall thickening allowing for incomplete distention. Appendix: Appendix is normal. No evidence of appendicitis. Intraperitoneal space: Unremarkable. No free air. No significant fluid collection. Vasculature: Unremarkable. No abdominal aortic aneurysm. Lymph nodes: Unremarkable. No enlarged lymph nodes. Urinary bladder: Unremarkable as visualized. Reproductive: Unremarkable as visualized. Bones/joints: Unremarkable. No acute fracture. Soft tissues: Small fat containing inguinal hernias. IMPRESSION: No acute abnormalities of the abdomen and pelvis. Nonemergent findings as above. COMMENTS: Consistent with the [employer]'s Incidental Findings Committee white paper (J Am Cecilia Radiol 2018): Any incidental renal lesion less than 1 cm or classified as too small to characterize, or any incidental cystic renal lesion characterized as simple-appearing, is likely benign. No follow-up imaging is recommended for these lesions per consensus recommendations based on imaging criteria.
[2023-10-09 23:07] VITALS: BP 220/114; PULSE 59; PULSE 99; RESP 18; TEMP 36.5; O2SAT 95; O2SAT 97
[2023-10-09] MEDS: SODIUM CHLORIDE 0.9% 10ML SYR (RAD ONLY) 10 ML IV (23:25)
[2023-10-09] MEDS: IOPAMIDOL-370 (76%);100ML BOTTLE 75 ML IV (23:25)
[2023-10-09 23:30] VITALS: BP 232/123; PULSE 92; O2SAT 97
[2023-10-09] MEDS: HYDROMORPHONE 2MG/ML SYRINGE 2 MG IV (23:33)
[2023-10-09 23:45] VITALS: BP 195/103; PULSE 81; O2SAT 97
[2023-10-09] MEDS: IRBESARTAN 150MG TAB 150 MG PO (23:57)
--- NOTE | 2023-10-09 23:58 | PC.NURSE ---
on phone with hospitalist
[2023-10-10 00:01] VITALS: BP 232/103; PULSE 59; RESP 16; O2SAT 97
--- NOTE | 2023-10-10 00:01 | PC.NURSE ---
notified clerical warehouseman of admission
--- NOTE | 2023-10-10 00:06 | CT_ITS ---
PROCEDURE INFORMATION: Exam: CTA Abdomen and Pelvis With Contrast Exam date and time: 10/10/2023 12:17 AM Age: 58 years old Clinical indication: Abdominal pain; Epigastric; Additional info: Intractable abdominal pain TECHNIQUE: Imaging protocol: Computed tomographic angiography of the abdomen and pelvis with contrast. Exam focused on the arteries. 3D rendering (Not supervised by radiologist): MIP and/or 3D reconstructed images were created by the technologist. Radiation optimization: All CT scans at this facility use at least one of these dose optimization techniques: automated exposure control; mA and/or kV adjustment per patient size (includes targeted exams where dose is matched to clinical indication); or iterative reconstruction. Contrast material: ISOVUE 370; Contrast volume: 100 ml; Contrast route: INTRAVENOUS (IV); COMPARISON: CT ABDOMEN PELVIS W CON 10/09/2023 11:09 PM FINDINGS: Aorta: No aortic aneurysm. No aortic dissection. Mild atherosclerotic changes. Celiac trunk and mesenteric arteries: No occlusion or significant stenosis. Renal arteries: No occlusion or significant stenosis. Right iliac arteries: No occlusion or significant stenosis. Left iliac arteries: No occlusion or significant stenosis. Liver: Multiple hepatic cysts throughout the liver redemonstrated. Gallbladder and bile ducts: Status post cholecystectomy. No evident bile duct dilatation allowing for prior cholecystectomy. Pancreas: Unremarkable. No mass. No ductal dilation. Spleen: Unremarkable. No splenomegaly. Adrenal glands: Unremarkable. No mass. Kidneys and ureters: Subcentimeter low-density lesions are noted in both kidneys too small to characterize but likely cysts. No follow-up of these lesions advised. Kidneys and ureters otherwise unremarkable with no obstructing stones or uropathy. Stomach and bowel: Extensive diverticula throughout the colon. Colon otherwise unremarkable with no evidence of diverticulitis. GI tract structures otherwise unremarkable with no evident wall thickening allowing for incomplete distention. Appendix: No evidence of appendicitis. Intraperitoneal space: Unremarkable. No free air. No significant fluid collection. Lymph nodes: Unremarkable. No enlarged lymph nodes. Urinary bladder: Unremarkable. No mass. Reproductive: Unremarkable as visualized. Bones/joints: No acute fracture. Soft tissues: Unremarkable. IMPRESSION: No acute abnormalities of the abdomen and pelvis. Nonemergent findings as above.
[2023-10-10] MEDS: HYDROMORPHONE 2MG/ML SYRINGE 1 MG IV ×3 (00:07→04:15)
[2023-10-10] MEDS: PANTOPRAZOLE 40MG VIAL 40 MG IV (00:07)
--- NOTE | 2023-10-10 00:07 | PC.NURSE ---
delaying transfer to 2nd floor unitl pt has CTA requested by admitting hospitalist
[2023-10-10] MEDS: 0.9 % SODIUM CHLORIDE 50 ML VIAL IV (00:36)
[2023-10-10] MEDS: SODIUM CHLORIDE 0.9% 10ML SYR (RAD ONLY) 10 ML IV (00:36)
[2023-10-10] MEDS: IOPAMIDOL-370 (76%);100ML BOTTLE 100 ML IV (00:36)
[2023-10-10 01:20] VITALS: BP 189/111; PULSE 66; RESP 16; TEMP 36.5; O2SAT 96
[2023-10-10 01:29] VITALS: BP 189/11; PULSE 66; RESP 16; TEMP 36.5; O2SAT 97
--- NOTE | 2023-10-10 01:31 | PC.NURSE ---
Report called to [facility] #[id number]
--- NOTE | 2023-10-10 02:06 | EXP.HP ---
History of Present Illness *Admission Date: 10/10/23 *Reason for visit:: intractable abdominal pain *History of present illness: 58 year old male presented to the [facility] ED for c/o upper abd pain, nausea, and vomiting for the past five days. PMHX of hypertension, hyperlipidemia, pancreatitis status postcholecystectomy, CAD. Pain is located in the epigastric area. Pt denies hematemesis and melena. Reports emesis is dark and brown but not bloody. Pt states he has had episodes of vomiting and abdominal pain for the past couple years. Last episode was one month prior. He reports that he is noncompliant with his medications for hypertension. In the ED, he was hypertensive with SBP above 200. He reports not taking any medications the past five days due to emesis. His ED workup revealed a leukocytosis of 12.3 and lactate of 3.3. His troponin was negative and his EKG was without ST elevation or depression. A abd/pelvis CT and CTA were obtained that revealed multiple hepatic cysts throughout the liver. No acute ischemia, dissection, occlusions, or other acute abnormalities noted in the abdomen or pelvis. He received 2 L of LR and IV Dilaudid. Despite additional pain medication, the pt's pain was still uncontrollable. He was given his home dose of irbesartan 150mg and the ED physician consulted the hospitalist team for further medical management. I admitted the pt to the medical floor after discussing case with the ED physician. He arrives to the floor rating pain 6/10. He has tenderness located in the epigastric region. Has not had any more emesis since arrival to the ED. I have placed a consult for general surgery. I will continue to trend his troponin and lactate level. Denies any headache or other complaints from hypertension. Will resume home medications and provide gentle hydration and as need IV nausea and pain medication. [facility] Disclaimer: The information contained in this section may have been updated after the patient was seen, as this information can be updated by other users. Medical History (Updated 10/10/23 @ 02:50 by MARIO Farooq) High frequency hearing loss of both ears Sensorineural hearing loss Pancreatitis Insomnia HLD (hyperlipidemia) CAD (coronary artery disease) Surgical History History of laparoscopic cholecystectomy History of colonoscopy History of surgery History of sinus surgery Family History (Updated 10/10/23 @ 02:03 by Zulma Vallejo RN) Other Family history of coronary artery disease Family history of diabetes mellitus Family history of thyroid cancer Social History (Updated 10/10/23 @ 02:03 by Zulma Vallejo RN) Smoking Status: Never smoker alcohol intake: never substance use type: denies use current occupational status: employed Travel in the last 8 weeks: Inside the [place] Review of Systems Review of Systems Review of systems:: pertinent systems reviewed and negative unless documented below *Gastrointestinal Gastrointestinal: Reports abdominal pain Meds Home Medications and Allergies Home Medications Medication Instructions Recorded Confirmed Type atorvastatin 20 mg tablet 20 mg PO DAILY Hyperlipidemia 10/04/20 10/10/23 History testosterone 2 pump topical DAILY Supplement 07/22/22 10/10/23 History losartan 100 mg tablet 100 mg PO DAILY hld 08/26/22 10/10/23 History bupropion HCl 150 mg tablet,12 hr 150 mg PO BID mood #180 ea 12/02/22 10/10/23 Rx sustained-release (Wellbutrin SR) clonidine HCl 0.2 mg tablet 0.4 mg (2 x 0.2 mg) PO HS #180 tabs 07/30/23 10/10/23 Rx sildenafil 100 mg tablet 100 mg PO DAILY PRN sexual 07/30/23 10/10/23 Rx activity #30 tabs testosterone 2 pump topical DAILY #75 grams 07/30/23 10/10/23 Rx hydroxyzine HCl 50 mg tablet 50 mg PO BID PRN itching #90 tabs 09/28/23 10/10/23 Rx zolpidem 12.5 mg tablet,extended 12.5 mg PO HS #30 tabs 09/28/23 10/10/23 Rx release,multiphase (Ambien CR) hydrocodone 10 mg-acetaminophen 1 tab PO Q6H PRN pain #12 tabs 10/05/23 10/10/23 Rx 325 mg tablet pantoprazole 40 mg tablet,delayed 40 mg PO DAILY #90 tabs 10/05/23 10/10/23 Rx release (Protonix) prochlorperazine maleate 10 mg 10 mg PO TID PRN nausea and 10/05/23 10/10/23 Rx tablet (Compazine) vomiting #90 tabs ondansetron 4 mg disintegrating 4 mg PO Q6H PRN nausea 10/10/23 10/10/23 History tablet testosterone cypionate 200 mg/mL See Rx Instructions .Route 10/10/23 10/10/23 History intramuscular oil .COMPLEX Supplement New Prescriptions to Start Prescriptions: Allergies Allergy/AdvReac Type Severity Reaction Status Date / Time No Known Allergies Allergy Verified 06/16/23 10:25 Exam Data for Last 24 hours Vital signs and Labs for Last 24 Hours: Temp Pulse Resp BP Pulse Ox O2 Del Method 97.7 F 66 16 189/11 H 96 Room Air 10/10/23 01:29 10/10/23 01:29 10/10/23 01:29 10/10/23 01:29 10/10/23 01:20 10/10/23 01:29 Laboratory Results - last 24 hr 10/09/23 22:15: WBC 12.3 H, RBC 5.81, Hgb 18.0, Hct 54.6 H, MCV 94.0, MCH 30.9, MCHC 32.9, RDW 14.6, Plt Count 485 H, MPV 7.0 L, Neut % (Auto) 91.9 H, Lymph % (Auto) 3.6 L, [place] % (Auto) 3.7, Eos % (Auto) 0.4, Baso % (Auto) 0.5, Neut # (Auto) 11.3 H, Lymph # (Auto) 0.4 L, [place] # (Auto) 0.5, Eos # (Auto) 0.0, Baso # (Auto) 0.1, Total Counted 100, Neutrophils % (Manual) 94 H, Lymphocytes % (Manual) 4 L, Monocytes % (Manual) 2, Platelet Estimate Normal, RBC Morphology Normal, Sodium 143, Potassium 4.3, Chloride 102, Carbon Dioxide 33 H, Anion Gap 12.3, BUN 20, Creatinine 0.90, Estimated Creat Clear 115, Estimated GFR 87, Est GFR ( Amer) 105, Glucose 142 H, Lactate 3.3 H, Calcium 10.2, Total Bilirubin 0.6, AST 49, ALT 43, Alkaline Phosphatase 78, Troponin I < 0.01, NT-Pro-B Natriuret Pep 255 H, Total Protein 7.7, Albumin 4.6, Globulin 3.1, Albumin/Globulin Ratio 1.5, Lipase 186 I & O for Last 24 hours: Intake & Output 10/07/23 10/08/23 10/09/23 10/10/23 23:59 23:59 23:59 23:59 Weight 90.718 kg Constitutional Constitutional: no acute distress *Routine HEENT Exam Head: Present normocephalic and atraumatic Eye: Present EOMI and normal accommodation ENT: Present mucous membranes moist *Routine Neck Exam Neck: Present supple and full ROM *Routine Respiratory Exam Respiratory: Present CTA bilaterally, able to speak in complete sentences and symmetric chest movement *Routine Cardiovascular Exam Cardiovascular: Present RRR *Routine Abdominal Exam Abdominal: Present soft, normoactive bowel sounds and tenderness (upper mid); Absent distended *Routine Rectal Exam Rectal:: deferred *Routine Genitalia Exam Genitalia:: deferred *Routine Extremities Exam Extremities: Present full ROM; Absent edema *Routine Skin Exam Skin: Present intact *Routine Neurological Exam Neurological: Present alert and oriented X3 Assessment and Plan *Assessment and plan (1) Intractable abdominal pain: Status: Acute Category: Medical Code(s): R10.9 - Unspecified abdominal pain (2) Elevated lactic acid level: Status: Acute Category: Medical Code(s): R79.89 - Other specified abnormal findings of blood chemistry (3) Leukocytosis: Status: Acute Category: Medical Code(s): D72.829 - Elevated white blood cell count, unspecified (4) CAD (coronary artery disease): Status: Chronic Qualifiers: Coronary Disease-Associated Artery/Lesion type: [place] artery [place] vs. transplanted heart: [place] heart Associated angina: with unstable angina Qualified Code(s): I25.110 - Atherosclerotic heart disease of [place] coronary artery with unstable angina pectoris Category: Medical Code(s): I25.10 - Atherosclerotic heart disease of [place] coronary artery without angina pectoris (5) Hyperlipemia: Status: Chronic Category: Medical Code(s): E78.5 - Hyperlipidemia, unspecified (6) HTN (hypertension): Status: Acute Category: Medical Code(s): I10 - Essential (primary) hypertension (7) Insomnia: Status: Acute Category: Medical Code(s): G47.00 - Insomnia, unspecified Plan 58 year old male presented to the [facility] ED for c/o upper abd pain, nausea, and vomiting for the past five days. His ED workup revealed a leukocytosis of 12.3 and lactate of 3.3. His troponin was negative and his EKG was without ST elevation or depression. A abd/pelvis CT and CTA were obtained that revealed multiple hepatic cysts throughout the liver. No acute ischemia, dissection, occlusions, or other acute abnormalities noted in the abdomen or pelvis. He received 2 L of LR and IV Dilaudid. Despite additional pain medication, the pt's pain was still uncontrollable. He was given his home dose of irbesartan 150mg and the ED physician consulted the hospitalist team for further medical management. I admitted the pt to the medical floor after discussing case with the ED physician. He arrives to the floor rating pain 6/10. He has tenderness located in the epigastric region. Has not had any more emesis since arrival to the ED. I have placed a consult for general surgery. I will continue to trend his troponin and lactate level. Denies any headache or other complaints from hypertension. Will resume home medications and provide gentle hydration and as need IV nausea and pain medication. INTRACTABLE ABD PAIN ELEVATED LACTIC ACID LEUKOCYTOSIS -c/o upper abd pain, nausea, and vomiting for the past five days -Pain is located in the epigastric area. Pt denies hematemesis and melena. Reports emesis is dark and brown but not bloody -leukocytosis of 12.3 and lactate of 3.3 -Received 2 L of LR in ED. Continue to trend lactate 3.3 -> 2.6 -Will repeat CBC in the morning. -A abd/pelvis CT and CTA were obtained that revealed multiple hepatic cysts throughout the liver. No acute ischemia, dissection, occlusions, or other acute abnormalities noted in the abdomen or pelvis. -General surgery consult placed. Thank you for the help!! -NPO -LR at 75 mL/hr for gentle hydration -Zofran 4mg and Dilaudid 1mg as needed for pain and nausea -AST, ALT, lipase are WNL -troponins negative CAD HTN HLD INSOMNIA -continue home atorvastatin 20mg, bupropion 150mg, clonidine 0.2mg, irbesartan 150mg, protonix 40mg, and ambien 10mg. FULL CODE NPO DVT: HOLD
[2023-10-10 02:21] LABS: Reflex Lactic Add Lactic Reflex
[2023-10-10] MEDS: LACTATED RINGERS 1000ML 1,000 ML 75 ML IV (02:21)
[2023-10-10] MEDS: ONDANSETRON 4MG/2ML VIAL 4 MG IV (02:21)
[2023-10-10] MEDS: ZOLPIDEM TARTRATE 10 MG TABLET PO (02:38)
[2023-10-10 02:44] LABS: Lactic Acid Follow Up (RFLX 1) 2.6 mmol/L (0.7-2.1)
[2023-10-10 02:56] LABS: Troponin I 0.01 ng/ml (0.00-0.034)
[2023-10-10 04:00] VITALS: BP 198/96; PULSE 101; RESP 20; TEMP 37.3; O2SAT 96; BMI 28.5
[2023-10-10 04:15] LABS: POC Glucose,Bedside 142 (70-110)
[2023-10-10] MEDS: ACETAMINOPHEN 1,000MG/100ML VIAL 1000 MG IV (04:20)
[2023-10-10 04:33] LABS: Reflex Lactic (2 hrs) Add Lactic Reflex
--- NOTE | 2023-10-10 04:46 | PC.NURSE ---
pt A&OX4, ambulates in room with standby assistance, pt. BP has been elevated, [employer]OR is aware, pt has c/o pain 01/11 and received pain meds per sep, medicated per sep for nausea, @0405 pt. stated something doesn't feel right , he states he is freezing but appears to be sweating, FSBS was 142, temp was 99.1, [employer]PER[employer]OR was notified, IV ofirmev was ordered and given, at this time pt. states he feels better and his pain is manageable
[2023-10-10 05:04] LABS: Lactic Acid Follow up (RFLX 2) 1.3 mmol/L (0.7-2.1)
[2023-10-10 05:16] LABS: Troponin I 0.02 ng/ml (0.00-0.034)
[2023-10-10 07:30] LABS: Chloride 102 mmol/L (98-107); Potassium 3.7 mmoL/L (3.5-5.1); Sodium 136 mmol/L (136-145)
[2023-10-10 07:32] LABS: Alanine Aminotransferase 27 U/L (12-78); Alkaline Phosphatase 69 U/L (38-126); Anion Gap 5.7 mEq/L (5-15); Aspartate Amino Transferase 34 U/L (17-59); Bilirubin,Total 0.6 mg/dl (0.2-1.3); Blood Urea Nitrogen 14 mg/dl (9-20); Carbon Dioxide 32 mmol/L (22.0-30.0); Creatinine Clearance Estimated 136 mL/min (50-200); Estimated Glomerular Filt Rate 99 ml/min (>60); GFR (African American) 120 ML/MIN (>60)
[2023-10-10 07:33] LABS: Albumin Level 3.8 g/dl (3.5-5.0); Albumin/Globulin Ratio 1.7 (1.1-1.8); Calcium 8.9 mg/dl (8.4-10.2); Globulin 2.2 g/dL (1.3-3.2); Glucose 112 mg/dl (74-100)
[2023-10-10 07:40] LABS: Basophils # 0.1 K/mm3 (0-0.2); Basophils % 0.4 % (0.1-2.0); Platelet Count 403 K/mm3 (142-424); Red Cell Distribution Width 14.4 % (11.5-17.5)
[2023-10-10 07:46] LABS: Eosinophils % 0.1 % (0.1-12.0); Hematocrit 48.3 % (42.0-52.0); Lymphocytes # 1.6 K/mm3 (0.7-4.5); Lymphocytes % 12.9 % (10-50); Mean Corpuscular HGB Conc 32.6 g/dL (31.8-35.4); Mean Corpuscular Hemoglobin 30.4 pg (27.0-31.2); Mean Corpuscular Volume 93.2 fl (80-94); Monocytes % 8.2 % (1.7-9.3); Neutrophils # 9.9 K/mm3 (1.8-7.8); Neutrophils % 78.3 % (37.0-80.0); Red Blood Count 5.18 M/mm3 (4.60-6.20); White Blood Count 12.6 K/mm3 (4.8-10.8)
[2023-10-10 07:50] LABS: Hemoglobin 15.8 g/dL (14.1-18.0)
[2023-10-10 08:00] VITALS: BP 141/96; PULSE 96; RESP 19; TEMP 36.6; O2SAT 96
[2023-10-10] MEDS: buPROPion HCl SR 150MG TAB 150 MG PO (09:10)
[2023-10-10] MEDS: IRBESARTAN 150MG TAB 150 MG PO (09:10)
[2023-10-10] MEDS: ATORVASTATIN 20MG TABLET 20 MG PO (09:10)
[2023-10-10] MEDS: PANTOPRAZOLE 40MG TABLET 40 MG PO (09:11)
--- NOTE | 2023-10-10 09:13 | P.CONS_ITS ---
History of Present Illness *Admission Date: 10/10/23 *Reason for visit:: Abdominal pain *History of present illness: This is a 58-year-old gentleman seen in consultation for evaluation regarding abdominal pain. Please see HPI forwarded from emergency department evaluation/admission history and physical below. Currently, he feels much better . He is requesting discharge home with outpatient follow-up. Forwarded from admission H&P/emergency department evaluation: 58 year old male presented to the [facility] ED for c/o upper abd pain, nausea, and vomiting for the past five days. PMHX of hypertension, hyperlipidemia, pancreatitis status postcholecystectomy, CAD. Pain is located in the epigastric area. Pt denies hematemesis and melena. Reports emesis is dark and brown but not bloody. Pt states he has had episodes of vomiting and abdominal pain for the past couple years. Last episode was one month prior. He reports that he is noncompliant with his medications for hypertension. In the ED, he was hypertensive with SBP above 200. He reports not taking any medications the past five days due to emesis. His ED workup revealed a leukocytosis of 12.3 and lactate of 3.3. His troponin was negative and his EKG was without ST elevation or depression. A abd/pelvis CT and CTA were obtained that revealed multiple hepatic cysts throughout the liver. No acute ischemia, dissection, occlusions, or other acute abnormalities noted in the abdomen or pelvis. He received 2 L of LR and IV Dilaudid. Despite additional pain medication, the pt's pain was still uncontrollable. He was given his home dose of irbesartan 150mg and the ED physician consulted the hospitalist team for further medical management. I admitted the pt to the medical floor after discussing case with the ED physician. He arrives to the floor rating pain 6/10. He has tenderness located in the epigastric region. Has not had any more emesis since arrival to the ED. I have placed a consult for general surgery. I will continue to trend his troponin and lactate level. Denies any headache or other complaints from hypertension. Will resume home medications and provide gentle hydration and as need IV nausea and pain medication. [facility] Disclaimer: The information contained in this section may have been updated after the patient was seen, as this information can be updated by other users. Medical History (Updated 10/10/23 @ 09:15 by Jewel Spangler MD) High frequency hearing loss of both ears Sensorineural hearing loss Pancreatitis Insomnia HLD (hyperlipidemia) CAD (coronary artery disease) Surgical History History of laparoscopic cholecystectomy History of colonoscopy History of surgery History of sinus surgery Family History (Updated 10/10/23 @ 02:03 by Zulma Vallejo, KETAN) Other Family history of coronary artery disease Family history of diabetes mellitus Family history of thyroid cancer Social History (Updated 10/10/23 @ 02:03 by Zulma Vallejo RN) Smoking Status: Never smoker alcohol intake: never substance use type: denies use current occupational status: employed Travel in the last 8 weeks: Inside the [place] Meds Home Medications and Allergies Home Medications Medication Instructions Recorded Confirmed Type atorvastatin 20 mg tablet 20 mg PO DAILY Hyperlipidemia 10/04/20 10/10/23 History testosterone 2 pump topical DAILY Supplement 07/22/22 10/10/23 History losartan 100 mg tablet 100 mg PO DAILY hld 08/26/22 10/10/23 History bupropion HCl 150 mg tablet,12 hr 150 mg PO BID mood #180 ea 12/02/22 10/10/23 Rx sustained-release (Wellbutrin SR) clonidine HCl 0.2 mg tablet 0.4 mg (2 x 0.2 mg) PO HS #180 tabs 07/30/23 10/10/23 Rx sildenafil 100 mg tablet 100 mg PO DAILY PRN sexual 07/30/23 10/10/23 Rx activity #30 tabs testosterone 2 pump topical DAILY #75 grams 07/30/23 10/10/23 Rx hydroxyzine HCl 50 mg tablet 50 mg PO BID PRN itching #90 tabs 09/28/23 10/10/23 Rx zolpidem 12.5 mg tablet,extended 12.5 mg PO HS #30 tabs 09/28/23 10/10/23 Rx release,multiphase (Ambien CR) hydrocodone 10 mg-acetaminophen 1 tab PO Q6H PRN pain #12 tabs 10/05/23 10/10/23 Rx 325 mg tablet pantoprazole 40 mg tablet,delayed 40 mg PO DAILY #90 tabs 10/05/23 10/10/23 Rx release (Protonix) prochlorperazine maleate 10 mg 10 mg PO TID PRN nausea and 10/05/23 10/10/23 Rx tablet (Compazine) vomiting #90 tabs ondansetron 4 mg disintegrating 4 mg PO Q6H PRN nausea 10/10/23 10/10/23 History tablet testosterone cypionate 200 mg/mL See Rx Instructions .Route 10/10/23 10/10/23 History intramuscular oil .COMPLEX Supplement New Prescriptions to Start Prescriptions: Allergies Allergy/AdvReac Type Severity Reaction Status Date / Time No Known Allergies Allergy Verified 06/16/23 10:25 Exam (Inpt) Vital signs and Labs for Last 24 Hours: Temp Pulse Resp BP Pulse Ox O2 Del Method 97.8 F 96 H 19 141/96 H 96 Room Air 10/10/23 08:00 10/10/23 08:00 10/10/23 08:00 10/10/23 08:00 10/10/23 08:00 10/10/23 08:00 Laboratory Results - last 24 hr 10/09/23 22:15: WBC 12.3 H, RBC 5.81, Hgb 18.0, Hct 54.6 H, MCV 94.0, MCH 30.9, MCHC 32.9, RDW 14.6, Plt Count 485 H, MPV 7.0 L, Neut % (Auto) 91.9 H, Lymph % (Auto) 3.6 L, [place] % (Auto) 3.7, Eos % (Auto) 0.4, Baso % (Auto) 0.5, Neut # (Auto) 11.3 H, Lymph # (Auto) 0.4 L, [place] # (Auto) 0.5, Eos # (Auto) 0.0, Baso # (Auto) 0.1, Total Counted 100, Neutrophils % (Manual) 94 H, Lymphocytes % (Manual) 4 L, Monocytes % (Manual) 2, Platelet Estimate Normal, RBC Morphology Normal, Sodium 143, Potassium 4.3, Chloride 102, Carbon Dioxide 33 H, Anion Gap 12.3, BUN 20, Creatinine 0.90, Estimated Creat Clear 115, Estimated GFR 87, Est GFR ( Amer) 105, Glucose 142 H, Lactate 3.3 H, Calcium 10.2, Total Bilirubin 0.6, AST 49, ALT 43, Alkaline Phosphatase 78, Troponin I < 0.01, N T-Pro-B Natriuret Pep 255 H, Total Protein 7.7, Albumin 4.6, Globulin 3.1, Albumin/Globulin Ratio 1.5, Lipase 186 10/10/23 02:25: Lactate 2.6 H, Troponin I 0.01 10/10/23 04:00: POC Glucose 142 H 10/10/23 04:45: Lactate 1.3, Troponin I 0.02 10/10/23 06:58: WBC 12.6 H, RBC 5.18, Hgb 15.8 D, Hct 48.3, MCV 93.2, MCH 30.4, MCHC 32.6, RDW 14.4, Plt Count 403, MPV 7.0 L, Neut % (Auto) 78.3, Lymph % (Auto) 12.9, [place] % (Auto) 8.2, Eos % (Auto) 0.1, Baso % (Auto) 0.4, Neut # (Auto) 9.9 H, Lymph # (Auto) 1.6, [place] # (Auto) 1.0, Eos # (Auto) 0.0, Baso # (Auto) 0.1, Sodium 136, Potassium 3.7, Chloride 102, Carbon Dioxide 32 H, Anion Gap 5.7, BUN 14 D, Creatinine 0.80, Estimated Creat Clear 136, Estimated GFR 99, Est GFR ( Amer) 120, Glucose 112 H D, Calcium 8.9, Total Bilirubin 0.6, AST 34 D, ALT 27 D, Alkaline Phosphatase 69, Total Protein 6.0 L, Albumin 3.8 D, Globulin 2.2, Albumin/Globulin Ratio 1.7 I & O for Labs for Last 24 Hours: Intake & Output 10/07/23 10/08/23 10/09/23 10/10/23 11:59 11:59 11:59 11:59 Output Total 0 / 0 Balance 0 / 0 Weight 210 lb 9.6 oz Constitutional: no acute distress Respiratory: Absent respiratory distress Cardiac: Absent Tachycardia GI: Present soft Rectal (male): Present deferred (male): Present deferred Extremities: Present full ROM Skin: Present intact Neuro: Present alert and oriented x 3 Results Labs 10/10/23 06:58 10/10/23 06:58 Labs: Laboratory Results - last 24 hr 10/09/23 22:15: WBC 12.3 H, RBC 5.81, Hgb 18.0, Hct 54.6 H, MCV 94.0, MCH 30.9, MCHC 32.9, RDW 14.6, Plt Count 485 H, MPV 7.0 L, Neut % (Auto) 91.9 H, Lymph % (Auto) 3.6 L, [place] % (Auto) 3.7, Eos % (Auto) 0.4, Baso % (Auto) 0.5, Neut # (Auto) 11.3 H, Lymph # (Auto) 0.4 L, [place] # (Auto) 0.5, Eos # (Auto) 0.0, Baso # (Auto) 0.1, Total Counted 100, Neutrophils % (Manual) 94 H, Lymphocytes % (Manual) 4 L, Monocytes % (Manual) 2, Platelet Estimate Normal, RBC Morphology Normal, Sodium 143, Potassium 4.3, Chloride 102, Carbon Dioxide 33 H, Anion Gap 12.3, BUN 20, Creatinine 0.90, Estimated Creat Clear 115, Estimated GFR 87, Est GFR ( Amer) 105, Glucose 142 H, Lactate 3.3 H, Calcium 10.2, Total Bilirubin 0.6, AST 49, ALT 43, Alkaline Phosphatase 78, Troponin I < 0.01, N T-Pro-B Natriuret Pep 255 H, Total Protein 7.7, Albumin 4.6, Globulin 3.1, Albumin/Globulin Ratio 1.5, Lipase 186 10/10/23 02:25: Lactate 2.6 H, Troponin I 0.01 10/10/23 04:00: POC Glucose 142 H 10/10/23 04:45: Lactate 1.3, Troponin I 0.02 10/10/23 06:58: WBC 12.6 H, RBC 5.18, Hgb 15.8 D, Hct 48.3, MCV 93.2, MCH 30.4, MCHC 32.6, RDW 14.4, Plt Count 403, MPV 7.0 L, Neut % (Auto) 78.3, Lymph % (Auto) 12.9, [place] % (Auto) 8.2, Eos % (Auto) 0.1, Baso % (Auto) 0.4, Neut # (Auto) 9.9 H, Lymph # (Auto) 1.6, [place] # (Auto) 1.0, Eos # (Auto) 0.0, Baso # (Auto) 0.1, Sodium 136, Potassium 3.7, Chloride 102, Carbon Dioxide 32 H, Anion Gap 5.7, BUN 14 D, Creatinine 0.80, Estimated Creat Clear 136, Estimated GFR 99, Est GFR ( Amer) 120, Glucose 112 H D, Calcium 8.9, Total Bilirubin 0.6, AST 34 D, ALT 27 D, Alkaline Phosphatase 69, Total Protein 6.0 L, Albumin 3.8 D, Globulin 2.2, Albumin/Globulin Ratio 1.7 Assessment and Plan *Assessment and plan (1) Intractable abdominal pain: Status: Acute Category: Medical Code(s): R10.9 - Unspecified abdominal pain Plan: Mostly epigastric and location. Currently, the patient feels much better. Okay from surgical standpoint for discharge home with close outpatient follow-up Most likely, initially to proceed with esophagogastroduodenoscopy for evaluation regarding peptic ulcer disease and Helicobacter pylori (2) Leukocytosis: Status: Acute Qualifiers: Leukocytosis type: unspecified Qualified Code(s): D72.829 - Elevated white blood cell count, unspecified Category: Medical Code(s): D72.829 - Elevated white blood cell count, unspecified Plan: Mild persistent leukocytosis of undefined etiology. Possibly reactive. He remains afebrile. Ongoing evaluation management as per primary service (3) Elevated lactic acid level: Status: Acute Category: Medical Code(s): R79.89 - Other specified abnormal findings of blood chemistry Plan: Lactate now normal at 1.3 (down from 3.3)
--- NOTE | 2023-10-10 10:27 | EXP.DC.SUM ---
General Admission date:: 10/10/23 Discharge date: 10/10/23 HPI HPI HPI: This is a 58-year-old gentleman seen in consultation for evaluation regarding abdominal pain. Please see HPI forwarded from emergency department evaluation/admission history and physical below. Currently, he feels much better . He is requesting discharge home with outpatient follow-up. Forwarded from admission H&P/emergency department evaluation: 58 year old male presented to the [facility] ED for c/o upper abd pain, nausea, and vomiting for the past five days. PMHX of hypertension, hyperlipidemia, pancreatitis status postcholecystectomy, CAD. Pain is located in the epigastric area. Pt denies hematemesis and melena. Reports emesis is dark and brown but not bloody. Pt states he has had episodes of vomiting and abdominal pain for the past couple years. Last episode was one month prior. He reports that he is noncompliant with his medications for hypertension. In the ED, he was hypertensive with SBP above 200. He reports not taking any medications the past five days due to emesis. His ED workup revealed a leukocytosis of 12.3 and lactate of 3.3. His troponin was negative and his EKG was without ST elevation or depression. A abd/pelvis CT and CTA were obtained that revealed multiple hepatic cysts throughout the liver. No acute ischemia, dissection, occlusions, or other acute abnormalities noted in the abdomen or pelvis. He received 2 L of LR and IV Dilaudid. Despite additional pain medication, the pt's pain was still uncontrollable. He was given his home dose of irbesartan 150mg and the ED physician consulted the hospitalist team for further medical management. I admitted the pt to the medical floor after discussing case with the ED physician. He arrives to the floor rating pain 6/10. He has tenderness located in the epigastric region. Has not had any more emesis since arrival to the ED. I have placed a consult for general surgery. I will continue to trend his troponin and lactate level. Denies any headache or other complaints from hypertension. Will resume home medications and provide gentle hydration and as need IV nausea and pain medication. Hospital Course Hospital Course Hospital Course: 58 year old male presented to the [facility] ED for c/o upper abd pain, nausea, and vomiting for the past five days. His ED workup revealed a leukocytosis of 12.3 and lactate of 3.3. His troponin was negative and his EKG was without ST elevation or depression. A abd/pelvis CT and CTA were obtained that revealed multiple hepatic cysts throughout the liver. No acute ischemia, dissection, occlusions, or other acute abnormalities noted in the abdomen or pelvis. He received 2 L of LR and IV Dilaudid. Despite additional pain medication, the pt's pain was still uncontrollable. He was given his home dose of irbesartan 150mg and the ED physician consulted the hospitalist team for further medical management. I admitted the pt to the medical floor after discussing case with the ED physician. He arrives to the floor rating pain 6/10. He has tenderness located in the epigastric region. Has not had any more emesis since arrival to the ED. I have placed a consult for general surgery. I will continue to trend his troponin and lactate level. Denies any headache or other complaints from hypertension. Will resume home medications and provide gentle hydration and as need IV nausea and pain medication. INTRACTABLE ABD PAIN - resolved ELEVATED LACTIC ACID - resolved LEUKOCYTOSIS -- improved Chronic medical conditions - stable CAD HTN HLD INSOMNIA -continue home atorvastatin 20mg, bupropion 150mg, clonidine 0.2mg, irbesartan 150mg, protonix 40mg, and ambien 10mg. F/u with GS and GI as OP, Dr. Dean mentions he will take care of the follow up appointments Exam Data for Last 24 hours Vital signs and Labs for Last 24 Hours: Temp Pulse Resp BP Pulse Ox O2 Del Method 97.8 F 96 H 19 141/96 H 96 Room Air 10/10/23 08:00 10/10/23 08:00 10/10/23 08:00 10/10/23 08:00 10/10/23 08:00 10/10/23 09:00 Laboratory Results - last 24 hr 10/09/23 22:15: WBC 12.3 H, RBC 5.81, Hgb 18.0, Hct 54.6 H, MCV 94.0, MCH 30.9, MCHC 32.9, RDW 14.6, Plt Count 485 H, MPV 7.0 L, Neut % (Auto) 91.9 H, Lymph % (Auto) 3.6 L, [place] % (Auto) 3.7, Eos % (Auto) 0.4, Baso % (Auto) 0.5, Neut # (Auto) 11.3 H, Lymph # (Auto) 0.4 L, [place] # (Auto) 0.5, Eos # (Auto) 0.0, Baso # (Auto) 0.1, Total Counted 100, Neutrophils % (Manual) 94 H, Lymphocytes % (Manual) 4 L, Monocytes % (Manual) 2, Platelet Estimate Normal, RBC Morphology Normal, Sodium 143, Potassium 4.3, Chloride 102, Carbon Dioxide 33 H, Anion Gap 12.3, BUN 20, Creatinine 0.90, Estimated Creat Clear 115, Estimated GFR 87, Est GFR ( Amer) 105, Glucose 142 H, Lactate 3.3 H, Calcium 10.2, Total Bilirubin 0.6, AST 49, ALT 43, Alkaline Phosphatase 78, Troponin I < 0.01, NT-Pro-B Natriuret Pep 255 H, Total Protein 7.7, Albumin 4.6, Globulin 3.1, Albumin/Globulin Ratio 1.5, Lipase 186 10/10/23 02:25: Lactate 2.6 H, Troponin I 0.01 10/10/23 04:00: POC Glucose 142 H 10/10/23 04:45: Lactate 1.3, Troponin I 0.02 10/10/23 06:58: WBC 12.6 H, RBC 5.18, Hgb 15.8 D, Hct 48.3, MCV 93.2, MCH 30.4, MCHC 32.6, RDW 14.4, Plt Count 403, MPV 7.0 L, Neut % (Auto) 78.3, Lymph % (Auto) 12.9, [place] % (Auto) 8.2, Eos % (Auto) 0.1, Baso % (Auto) 0.4, Neut # (Auto) 9.9 H, Lymph # (Auto) 1.6, [place] # (Auto) 1.0, Eos # (Auto) 0.0, Baso # (Auto) 0.1, Sodium 136, Potassium 3.7, Chloride 102, Carbon Dioxide 32 H, Anion Gap 5.7, BUN 14 D, Creatinine 0.80, Estimated Creat Clear 136, Estimated GFR 99, Est GFR ( Amer) 120, Glucose 112 H D, Calcium 8.9, Total Bilirubin 0.6, AST 34 D, ALT 27 D, Alkaline Phosphatase 69, Total Protein 6.0 L, Albumin 3.8 D, Globulin 2.2, Albumin/Globulin Ratio 1.7 I & O for Last 24 hours: Intake & Output 10/07/23 10/08/23 10/09/23 10/10/23 23:59 23:59 23:59 23:59 Output Total 0 / 0 Balance 0 / 0 Weight 90.718 kg 95.527 kg Constitutional Constitutional: no acute distress *Routine HEENT Exam Head: Present normocephalic Eye: Present EOMI and PERRL ENT: Present mucous membranes moist *Routine Neck Exam Neck: Present supple; Absent lymphadenopathy *Routine Respiratory Exam Respiratory: Present CTA bilaterally *Routine Cardiovascular Exam Cardiovascular: Present RRR *Routine Abdominal Exam Abdominal: Present soft and normoactive bowel sounds; Absent tenderness *Routine Extremities Exam Extremities: Absent cyanosis, clubbing or edema *Routine Skin Exam Skin: Present warm; Absent rash *Routine Neurological Exam Neurological: Present alert and oriented X3 Results Data Completed and Pending Labs on day of discharge: Labs from last 24 hours 10/10/23 10/10/23 10/10/23 06:58 04:45 04:00 WBC 12.6 H RBC 5.18 Hgb 15.8 D Hct 48.3 MCV 93.2 MCH 30.4 MCHC 32.6 RDW 14.4 Plt Count 403 MPV 7.0 L Neut % (Auto) 78.3 Lymph % (Auto) 12.9 [place] % (Auto) 8.2 Eos % (Auto) 0.1 Baso % (Auto) 0.4 Neut # (Auto) 9.9 H Lymph # (Auto) 1.6 [place] # (Auto) 1.0 Eos # (Auto) 0.0 Baso # (Auto) 0.1 Total Counted Neutrophils % (Manual) Lymphocytes % (Manual) Monocytes % (Manual) Platelet Estimate RBC Morphology Sodium 136 Potassium 3.7 Chloride 102 Carbon Dioxide 32 H Anion Gap 5.7 BUN 14 D Creatinine 0.80 Estimated Creat Clear 136 Estimated GFR 99 Est GFR ( Amer) 120 Glucose 112 H D POC Glucose 142 H Lactate 1.3 Calcium 8.9 Total Bilirubin 0.6 AST 34 D ALT 27 D Alkaline Phosphatase 69 Troponin I 0.02 NT-Pro-B Natriuret Pep Total Protein 6.0 L Albumin 3.8 D Globulin 2.2 Albumin/Globulin Ratio 1.7 Lipase 10/10/23 10/09/23 02:25 22:15 WBC 12.3 H RBC 5.81 Hgb 18.0 Hct 54.6 H MCV 94.0 MCH 30.9 MCHC 32.9 RDW 14.6 Plt Count 485 H MPV 7.0 L Neut % (Auto) 91.9 H Lymph % (Auto) 3.6 L [place] % (Auto) 3.7 Eos % (Auto) 0.4 Baso % (Auto) 0.5 Neut # (Auto) 11.3 H Lymph # (Auto) 0.4 L [place] # (Auto) 0.5 Eos # (Auto) 0.0 Baso # (Auto) 0.1 Total Counted 100 Neutrophils % (Manual) 94 H Lymphocytes % (Manual) 4 L Monocytes % (Manual) 2 Platelet Estimate Normal RBC Morphology Normal Sodium 143 Potassium 4.3 Chloride 102 Carbon Dioxide 33 H Anion Gap 12.3 BUN 20 Creatinine 0.90 Estimated Creat Clear 115 Estimated GFR 87 Est GFR ( Amer) 105 Glucose 142 H POC Glucose Lactate 2.6 H 3.3 H Calcium 10.2 Total Bilirubin 0.6 AST 49 ALT 43 Alkaline Phosphatase 78 Troponin I 0.01 < 0.01 NT-Pro-B Natriuret Pep 255 H Total Protein 7.7 Albumin 4.6 Globulin 3.1 Albumin/Globulin Ratio 1.5 Lipase 186 DS: Diagnosis Discharge Diagnosis (1) Intractable abdominal pain: Status: Acute Code(s): R10.9 - Unspecified abdominal pain (2) Leukocytosis: Status: Acute Code(s): D72.829 - Elevated white blood cell count, unspecified Qualifiers: Leukocytosis type: unspecified Qualified Code(s): D72.829 - Elevated white blood cell count, unspecified (3) Elevated lactic acid level: Status: Acute Code(s): R79.89 - Other specified abnormal findings of blood chemistry Meds Home Medications and Allergies Home Medications Medication Instructions Recorded Confirmed Type atorvastatin 20 mg tablet 20 mg PO DAILY Hyperlipidemia 10/04/20 10/10/23 History testosterone 2 pump topical DAILY Supplement 07/22/22 10/10/23 History losartan 100 mg tablet 100 mg PO DAILY hld 08/26/22 10/10/23 History bupropion HCl 150 mg tablet,12 hr 150 mg PO BID mood #180 ea 12/02/22 10/10/23 Rx sustained-release (Wellbutrin SR) clonidine HCl 0.2 mg tablet 0.4 mg (2 x 0.2 mg) PO HS #180 tabs 07/30/23 10/10/23 Rx sildenafil 100 mg tablet 100 mg PO DAILY PRN sexual 07/30/23 10/10/23 Rx activity #30 tabs testosterone 2 pump topical DAILY #75 grams 07/30/23 10/10/23 Rx hydroxyzine HCl 50 mg tablet 50 mg PO BID PRN itching #90 tabs 09/28/23 10/10/23 Rx zolpidem 12.5 mg tablet,extended 12.5 mg PO HS #30 tabs 09/28/23 10/10/23 Rx release,multiphase (Ambien CR) hydrocodone 10 mg-acetaminophen 1 tab PO Q6H PRN pain #12 tabs 10/05/23 10/10/23 Rx 325 mg tablet pantoprazole 40 mg tablet,delayed 40 mg PO DAILY #90 tabs 10/05/23 10/10/23 Rx release (Protonix) prochlorperazine maleate 10 mg 10 mg PO TID PRN nausea and 10/05/23 10/10/23 Rx tablet (Compazine) vomiting #90 tabs ondansetron 4 mg disintegrating 4 mg PO Q6H PRN nausea 10/10/23 10/10/23 History tablet testosterone cypionate 200 mg/mL See Rx Instructions .Route 10/10/23 10/10/23 History intramuscular oil .COMPLEX Supplement New Prescriptions to Start Prescriptions: Allergies Allergy/AdvReac Type Severity Reaction Status Date / Time No Known Allergies Allergy Verified 06/16/23 10:25 Discharge Plan Disposition Patient Disposition: Home, Self-Care Condition: Fair Follow up Plan Follow up with: Jewel Spangler MD [Staff Physician] - 1 week Prescriptions/Medication Reconciliation: Continued bupropion HCl [Wellbutrin SR] 150 mg tablet sustained-release 12 hr 150 mg PO BID Qty: 180 3RF clonidine HCl 0.2 mg tablet 0.4 mg PO HS Qty: 180 3RF sildenafil 100 mg tablet 100 mg PO DAILY PRN (Reason: sexual activity) Qty: 30 12RF Rx Instructions: administer 30 minutes to 4 hours before activity testosterone 20.25 mg/1.25 gram (1.62 %) gel in metered-dose pump 2 pump topical DAILY Qty: 75 3RF zolpidem [Ambien CR] 12.5 mg tablet,ext release multiphase 12.5 mg PO HS Qty: 30 5RF hydroxyzine HCl 50 mg tablet 50 mg PO BID PRN (Reason: itching) Qty: 90 2RF prochlorperazine maleate [Compazine] 10 mg tablet 10 mg PO TID PRN (Reason: nausea and vomiting) Qty: 90 0RF hydrocodone-acetaminophen 10-325 mg tablet 1 tab PO Q6H PRN (Reason: pain) Qty: 12 0RF pantoprazole [Protonix] 40 mg tablet,delayed release (DR/EC) 40 mg PO DAILY Qty: 90 3RF atorvastatin 20 MG tablet 20 mg PO DAILY testosterone 20.25 mg/1.25 gram (1.62 %) gel in metered-dose pump 2 pump topical DAILY Rx Instructions: apply 1 pump amount over max area of EACH upper arm and shoulder losartan 100 mg tablet 100 mg PO DAILY testosterone cypionate 200 mg/mL oil See Rx Instructions .ROUTE .COMPLEX Rx Instructions: 100 mg intramuscularly every 3 weeks ondansetron 4 mg tablet,disintegrating 4 mg PO Q6H PRN (Reason: nausea) Problem Reconciliation Problems Reviewed?: Yes Patient Discharge Instructions ACTIVITY: Ambulate as tolerated DIET: continue same diet Patient Instructions: DI for Abdominal Pain-Adult, DI for Chronic Pain -- Adult Providers Primary Care Provider: Bang Lira Provider: Mary Rey Attending Provider: aMry Rey
--- NOTE | 2023-10-11 14:42 | SW/DCPLANNER ---
Follow up phone call w/ this patient: patient stated that he is feeling much better and does not have any needs at this time. Patient is set to follow up w/ Dr Spangler.
--- NOTE | 2023-10-17 03:12 | PC.NURSE ---
received final report blood cultures and noted no growth after [address] martin for follow up.
== END 2023-10-10 12:07 | disposition home or self-care (01) ==
LOC: ER 10-10 → 2ND 10-10 00:16
PROVIDERS: Emergency Medicine; Nurse Practitioner Critical Care Medicine; Admitting Provider Internal Medicine; Emergency Provider Emergency Medicine; PCP Nurse Practitioner Family; Visit Provider Internal Medicine
DX: R10.9 Unspecified abdominal pain (principal); D72.829 Elevated white blood cell count, unspecified; R79.89 Other specified abnormal findings of blood chemistry; I25.110 Atherosclerotic heart disease of native coronary artery with unstable angina pectoris; E78.5 Hyperlipidemia, unspecified; I10 Essential (primary) hypertension; G47.00 Insomnia, unspecified; H90.3 Sensorineural hearing loss, bilateral; Z91.128 Patient's intentional underdosing of medication regimen for other reason
CPT/HCPCS: 71045; 74174; 74177; 80053; 82962; 83605; 83690; 83880; 84484; 85007; 85025; 87040; 93005; 99285; G0378; J0131; J2405; Q9967

== ENCOUNTER 2023-10-19 09:32 | Day surgery (SDC) | payer OTHER, SELFPAY ==
[2023-10-18 08:53] VITALS: BMI 27.8
[2023-10-19] VITALS (7 sets, daily range): BP systolic 98–153; BP diastolic 55–91; PULSE 78–107; RESP 12–18; TEMP 36.3–37; O2SAT 92–97
--- NOTE | 2023-10-19 09:48 | P.PNANES_ITS ---
[facility] Disclaimer: The information contained in this section may have been updated after the patient was seen, as this information can be updated by other users. Medical History High frequency hearing loss of both ears Sensorineural hearing loss Pancreatitis Insomnia HLD (hyperlipidemia) CAD (coronary artery disease) Surgical History History of laparoscopic cholecystectomy History of colonoscopy History of surgery History of sinus surgery Family History Other Family history of coronary artery disease Family history of diabetes mellitus Family history of thyroid cancer Social History Smoking Status: Never smoker alcohol intake: never substance use type: denies use current occupational status: employed Travel in the last 8 weeks: Inside the [place] [facility] Anesthesia Checklist Patient Identification Patient Identification: Arm Band and Verbal (Name & ) Structural Data Admitted From: Home Planned Operative Procedure/s: EGD Consent for Planned Operative Procedure(s) Verified: Yes NPO Status Verified Time NPO: 00:00 Chart Verification Results Verified: CBC and BMP Additional verifications Anesthesia Reactions: No Hx Blood Transfusions: No Blood Transfusion Reaction: No Airway Assessment Mallampati Score:: Class II C-Spine Mobility Assessed: Yes TMJ Mobility Assessed: Yes Dentition: Good Dentition Neurological Assessment Level of Consciousness: Awake Hx Seizures: No Numbness or tingling in extremities: No Anesthesia Plan Anesthesia Risk discussed: Yes Anesthesia Plan: Verified ASA Class: II Anesthesia Type: MAC
[2023-10-19] MEDS: LACTATED RINGERS 1000ML 1,000 ML 25 ML IV (09:55)
--- NOTE | 2023-10-19 10:14 | HMH.SCOPE ---
Procedure: Date: 10/19/23 Patient Date of :: 1965 Procedure Performed:: Esophagogastroduodenoscopy with biopsy Indications:: Upper abdominal pain Intermittent nausea/vomiting Performing Provider:: Jewel Spangler MD Referring Provider:: . Sedation:: Monitored anesthesia care Procedure:: After informed consent was obtained the patient was taken to the endoscopy suite. Sedation ensued after the patient was transferred to the left lateral decubitus position. Pulse, blood pressure, and oxygen saturation were monitored throughout the procedure. The endoscope was advanced beyond the duodenal bulb. Retroflexion within the gastric lumen was accomplished. The gastroscope was carefully removed and the patient was transferred to recovery in stable condition. Please see findings and specimens below for detail. Findings:: Slight increased angulation versus shallow wide-mouth diverticulum at 20 cm Moderate esophageal tortuosity Gastroesophageal junction at 41 cm Patchy linear distal gastritis Lobular focal increased inflammatory changes in antrum (possible old /healed ulceration) Specimens:: Antral biopsy (focal increase lobular inflammatory change) Recommendations:: Follow-up pathology Consider barium swallow Consider UGI/SBFT Consider gastric emptying scan Consider gastroenterology consultation Complications:: No immediate Estimated blood obtained (mL): 1 Colonoscopy Component Colonoscopy Component Was a colonoscopy performed during today's procedure?: No
[2023-10-19] MEDS: PROMETHAZINE HCL 25MG/ML 1ML VIAL 12.5 MG IV (10:41)
== END 2023-10-19 11:25 | disposition home or self-care (01) ==
PROVIDERS: PCP Nurse Practitioner Family; Visit Provider Surgery
PROC: 0DJ08ZZ Inspection of Upper Intestinal Tract, Via Natural or Artificial Opening Endoscopic (ICD-10-PCS; CPT 43235; principal; 2023-10-19 10:30)
DX: R10.10 Upper abdominal pain, unspecified (principal); R11.2 Nausea with vomiting, unspecified; K22.89 Other specified disease of esophagus; K29.70 Gastritis, unspecified, without bleeding; K31.9 Disease of stomach and duodenum, unspecified
CPT/HCPCS: 43239; J2405

== ENCOUNTER 2024-03-24 10:06 | Outpatient (CLI) | payer OTHER, SELFPAY ==
[2024-03-24 18:54] LABS: Basophils # 0.1 K/mm3 (0-0.2); Basophils % 0.7 % (0.1-2.0); Eosinophils # 0.2 K/mm3 (0.0-0.4); Eosinophils % 1.8 % (0.1-12.0); Hematocrit 42.2 % (42.0-52.0); Hemoglobin 13.3 g/dL (14.1-18.0); Lymphocytes # 1.3 K/mm3 (0.7-4.5); Lymphocytes % 13.4 % (10-50); Mean Corpuscular HGB Conc 31.5 g/dL (31.8-35.4); Mean Corpuscular Hemoglobin 29.9 pg (27.0-31.2); Mean Corpuscular Volume 94.9 fl (80-94); Mean Platelet Volume 7.2 fl (7.4-10.4); Monocytes # 0.7 K/mm3 (0.1-1.0); Monocytes % 7.5 % (1.7-9.3); Neutrophils # 7.2 K/mm3 (1.8-7.8); Neutrophils % 76.5 % (37.0-80.0); Platelet Count 413 K/mm3 (142-424); Red Blood Count 4.45 M/mm3 (4.60-6.20); Red Cell Distribution Width 15.2 % (11.5-17.5); White Blood Count 9.4 K/mm3 (4.8-10.8)
[2024-03-24 19:33] LABS: Alanine Aminotransferase 29 U/L (12-78); Albumin Level 3.8 g/dl (3.5-5.0); Albumin/Globulin Ratio 1.7 (1.1-1.8); Alkaline Phosphatase 59 U/L (38-126); Anion Gap 9.1 mEq/L (5-15); Aspartate Amino Transferase 27 U/L (17-59); Bilirubin,Total 0.4 mg/dl (0.2-1.3); Blood Urea Nitrogen 9 mg/dl (9-20); Calcium 9.4 mg/dl (8.4-10.2); Carbon Dioxide 27 mmol/L (22.0-30.0); Chloride 103 mmol/L (98-107); Chol/HDL Ratio 3.5 (1-3.5); Cholesterol 137 mg/dl (140-200); Estimated Glomerular Filt Rate 87 ml/min (>60); GFR (African American) 105 ML/MIN (>60); Globulin 2.3 g/dL (1.3-3.2); Glucose 97 mg/dl (74-100); HDL Cholesterol 39 mg/dl (40-60); Potassium 4.1 mmoL/L (3.5-5.1); Sodium 135 mmol/L (136-145); Total Protein,Serum 6.1 g/dl (6.3-8.2); Triglycerides 96 mg/dl (30-150); VLDL Cholesterol 19 mg/dL (0-40)
[2024-03-24 19:45] LABS: Direct LDL Cholesterol 78.57 mg/dL (100-129)
[2024-03-24 20:05] LABS: Prostate Specific Ag Screen 3.2 ng/ml (0.0-4.0); Thyroid Stimulating Hormone 3.12 uIU/mL (0.465-4.68)
[2024-03-26 06:43] LABS: Testosterone,Total 1056 ng/dL (264-916)
== END 2024-03-24 23:59 | disposition home or self-care (01) ==
LOC: LAB.DROPOF 03-27 10:07
PROVIDERS: PCP Nurse Practitioner Family; Visit Provider Nurse Practitioner Family
DX: E04.1 Nontoxic single thyroid nodule (principal); R10.9 Unspecified abdominal pain
CPT/HCPCS: 80050; 80053; 80061; 84403; 84443; 85025; G0103

== ENCOUNTER 2024-04-11 06:15 | Outpatient (CLI) | payer OTHER, SELFPAY ==
--- NOTE | 2024-04-11 | CA_ITS ---
APPROVED REPORT Exam: Exercise Treadmill Technologist: Radha Funk Ht: 6 ft 0 in Wt: 218 lbs BSA: 2.21 m2 HR: 67 bpm BP: 112/74 mmHg Rhythm: NSR Indications: Dyspnea, Edema, HTN, CAD, Fatigue Medical History Medications: Lorazepam,,,,, Pantoprazole,,,,, Atorvastatin,,,,, HCTZ,,,,, Finasteride,,,,, Reglan,,,,, CompAZINE,,,,, Testosterone,,,,, Clonidine HCI,,,,, Amlodipiine,,,,, BuPROPION HCI SR,,,,, SilDinafil,,,,, Stress Test Details Test: César HR Resting HR: 74 bpm Max Heart Rate (APMHR): 161 bpm Max HR Achieved: 139 bpm Target HR (85% APMHR): 137 bpm % of APMHR: 86 Recovery HR: 82 bpm HR response to stress: Normal HR response to stress BP Resting BP: 112.0/74 mmHg Max BP: 172/82 mmHg Recovery BP: 126.0/74.0 mmHg BP response to stress: Normal blood pressure response to stress. ECG Resting ECG: Sinus rhythm Stress EC.[address] depression Arrhythmia: None Recovery ECG: Return to baseline within 3 minutes of recovery Recovery Arrhythmia: None Clinical Exercise duration: 09:05 min Highest Stage Achieved: Exercise capacity: 10.1 METs Overall Exercise Capacity for Age: Average Stress ECG Conclusion Symptoms: Dyspnea Arrhythmias/Ectopy: None ST-T Changes: 0.[address] depression Conclusion: Average exercise capacity. Normal EKG response to exercise. Myoview images reported separately. Test Summary REST . . . . . . . Sitting REST 10:41 0.0 0.0 74 . 112/ 74 . . Stage 1 01:00 10.0 1.7 88 . . . . Stage 1 02:00 10.0 1.7 96 . . . . Stage 1 03:00 10.0 1.7 99 . 118/ 78 . . Stage 2 01:00 12.0 2.5 103 . . . . Stage 2 02:00 12.0 2.5 108 . . . . Stage 2 03:00 12.0 2.5 111 . 142/ 88 . . Stage 3 01:00 14.0 3.4 123 . . . . Stage 3 02:00 14.0 3.4 130 . . . . Stage 3 03:00 14.0 3.4 136 . 140/ 92 . . Stage 4 00:05 16.0 4.2 137 . . . Stop exercise at 09:05 RECOVERY 01:00 0.0 0.0 115 . 170/ 88 . . RECOVERY 02:00 0.0 0.0 99 . 170/ 88 . . RECOVERY 03:00 0.0 0.0 88 . 172/ 82 . . RECOVERY 04:00 0.0 0.0 87 . 134/ 78 . . RECOVERY 05:00 0.0 0.0 84 . 126/ 74 . . RECOVERY 05:29 0.0 0.0 85 . 126/ 74 . . Electronically signed by : Sara Pavon MD 04/11/2024 11:54:51
--- NOTE | 2024-04-11 06:21 | NM_ITS ---
APPROVED REPORT Exam: Nuclear Stress Test Indication: cad, 1 stent, htn, hyperlipidemia, fm hx, son, fatigue Patient Location: Outpatient Stress Tech: Radha Funk NE Tech:Anette ClaytonSTERLING RT (R)(N)(M) Ht: 6 ft 1 in Wt: 211 lbs HR: 74 bpm BP: 112/74 mmHg BSA: 2.20 m2 Rhythm: NSR TID: 1.07 BMI: 27.8 History: cad, 1 stent, htn, hyperlipidemia, fm hx, son, fatigue Procedure: Patient exercised on César protocol 9:05 minutes and sec, resting heart rate 74 bpm, resting blood pressure 112/74 mmHg, with exercise maximum heart rate achived was 139 bpm which is 86 % of the maximum predicted heart rate and blood pressure was 172/82 mmHg. Test was stopped due to fatigue. Patient denied any complaint of chest pain. Patient has average exercise capacity, achieved 10.1 METs of workload on treadmill, the blood pressure response to exercise was normal. Cardiac Stress and Resting SPECT Images: Cardiac Stress and Resting SPECT images were obtained using technetium 99m Myoview 31.9 mCi stress and 10.37 mCi at rest. Resting and stress imaging in supine and prone positions demonstrate a medium sized, mild, partially reversible perfusion defect in the inferior LV wall. Reversibility is noted in the distal segments towards the inferoapical region. Gated imaging demonstrates mild to moderate reduction global LV systolic function. LVEF is calculated at 40%. Conclusion: Medium sized, mild, partially reversible perfusion defect in the inferior LV wall. Reversibility is noted in the distal segments towards the inferoapical region. Findings are suggestive of partial reversible ischemia. Gated imaging demonstrates mild to moderate reduction global LV systolic function. LVEF is calculated at 40%. Electronically signed by : Sara Pavon MD 04/11/2024 11:57:50
--- NOTE | 2024-04-11 06:34 | CA_ITS ---
APPROVED REPORT EXAM: Comprehensive 2D, Doppler, and color-flow Echocardiogram Technical Services Coordinator: Estela Trimble CRT Ht: 6 ft 0 in Wt: 218lbs BSA: 2.21 BP: 114/72 mmHg Indications: Shortness of Breath, Dyspnea, Fatigue, CAD, Hyperlipidemia, Hypertension/HDD 2D Dimensions LA Volume 54.10 mL LA Volume Index 23.90 mL/m2 (M/F) 16-34 M-Mode Dimensions RVDd 2.64 cm (0.9-2.6) LA Diam 3.61 cm (1.9-4.0) LVDd 4.57 cm (3.5-5.7) LVDs 3.25 cm (3.5-5.7) IVSd 1.61 cm (0.6-1.1) PWd 0.86 cm (0.6-1.1) EF (Teich) 55.70% FS 28.90% EDV (Teich) 95.90 mL TAPSE 2.60 (<1.7) ESV (Teich) 42.50 mL LV Diastology E Decel Time 150 (160-240 msec) E/A Ratio 0.94 MED A' 9.30 cm/s LAT A' 11.30 cm/s Aortic Valve AO Peak GR. 4.70 mmHg Mitral Valve MV E Max Jarek. 68.0 (40-130 cm/s) MV A Velocity 73.0 (40-130 cm/s) E/A Ratio 0.94 MV PHT 44.0 ms Pulmonary Valve PV Peak Velocity 135.0 (50-150 cm/s) Tricuspid Valve TR P. Velocity 222.00 cm/s RAP Estimate 10.00 mmHg RVSP 29.70 mmHg Left Ventricle The left ventricle is normal size. Left ventricular systolic function is mildly decreased. There is increased LV wall thickness. There is mild global hypokinesis present. There is moderate hypokinesis of the distal inferior and inferoseptall LV guerrero. Diastolic function is indeterminate. LVEF is 45%. Right Ventricle The right ventricle is mildly dilated. The right ventricular systolic function is normal. Atria The left atrium is mildly dilated. The right atrium size is normal. There is no Doppler evidence of interatrial shunt. Aortic Valve The aortic valve is mildly thickened. There is no aortic valvular stenosis. No aortic regurgitation is present. Mitral Valve The mitral valve is normal in structure. No evidence of mitral valve stenosis. Trace mitral regurgitation. Tricuspid Valve The tricuspid valve leaflets are thin and pliable. Mild tricuspid regurgitation. RVSP is 20-25 mmHg. Pulmonic Valve The pulmonary valve is normal in structure. Trace pulmonic regurgitation. Great Vessels The aortic root is normal in size. The ascending aorta is not well-visualized. IVC is normal in size and collapses >50% with inspiration. Pericardium There is no pericardial effusion. Other Information Study Quality: Fair Conclusion Mildly reduced LV systolic function (LVEF 45%). Moderate hypokinesis of the distal inferior and inferoseptall LV guerrero. Mildly dilated RV with normal RV function. Mild LA dilation. Mild TR. Electronically signed by : Sara Pavon MD 04/11/2024 12:32:37
--- NOTE | 2024-04-11 08:43 | US_ITS ---
FINAL REPORT CLINICAL HISTORY: thyroid nodule COMPARISON: None FINDINGS: Sonographic images of the thyroid gland were obtained. The right thyroid lobe measures 45 mm. in length. The left thyroid lobe measures 43 mm. in length. The thyroid isthmus measures 3 mm. The echogenicity is normal. No mass or nodule is identified. IMPRESSION: Unremarkable thyroid ultrasound Reviewed, Interpreted and Dictated by Archie Mcfarlane III, MD Transcribed by Tami Lang Authenticated and [facility]
[2024-04-11] MEDS: SODIUM CHLORIDE 0.9% 10ML SYR (RAD ONLY) 10 ML IV ×2 (09:15)
[2024-04-11] MEDS: ISOTOPE MYOVIEW (PER STUDY) 1 DOSE IV (09:15)
== END 2024-04-11 23:59 | disposition home or self-care (01) ==
LOC: RAD 06:16
PROVIDERS: PCP Nurse Practitioner Family; Visit Provider Internal Medicine
DX: I25.110 Atherosclerotic heart disease of native coronary artery with unstable angina pectoris (principal); E04.1 Nontoxic single thyroid nodule; R06.00 Dyspnea, unspecified
CPT/HCPCS: 76536; 78452; 93017; 93018; 93306; A9502

== ENCOUNTER 2024-04-26 08:24 | Day surgery (SDC) | payer OTHER, SELFPAY ==
[2024-04-26] VITALS (10 sets, daily range): BP systolic 100–157; BP diastolic 60–95; PULSE 49–70; RESP 14–20; TEMP 36.1–36.6; O2SAT 95–98; BMI 28.5
--- NOTE | 2024-04-26 07:14 | IR_ITS ---
APPROVED REPORT Patient Location: Outpatient PROCEDURES Left heart catheterization Left ventriculogram Selective coronary angiogram INDICATION Known coronary artery disease, Abnormal stress test, Abnormal CCTA, Informed consent was obtained prior to the procedure. COMPLICATIONS NONE Estimated Blood Loss: LESS THAN 10 ML TECHNIQUE One percent lidocaine used to anesthetize the right anterior aspect of the wrist. The right radial artery was accessed via the Seldinger technique. A 6 Greek sheath was placed in the right radial artery. 2.5 mg of Verapamil, 800 mcg of nitroglycerin, 1mg Lidocaine and 5000 U Heparin were given through the arterial sheath. The 6 Greek JL 3 guide catheter was was also used to perform left heart catheterization, left ventriculogram and selective coronary angiogram. At the end of the procedure the sheath was removed good hemostasis was achieved using Traclet band, patient was transferred to the postop holding area in stable condition. ANGIOGRAPHIC RESULTS The left main artery Normal The left anterior descending artery Is proximally normal followed by a 10% stenosis distal to the first septal filter tank tender helper and first diagonal artery. 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 The remaining LAD is widely patent The circumflex artery Nondominant with mild luminal irregularities The right coronary artery Is a large dominant vessel with a stent in the proximal segment which is widely patent free of in-stent restenosis with excellent proximal distal transitioning. There is an additional concentric 30% stenosis in the distal portion followed by an additional 10 to 20% stenosis. Mild luminal regularities are present in the posterior descending and posterior lateral branch The [place] ventriculogram reveals Normal 65% The left ventricular end-diastolic pressure 10 mmHg IMPRESSION Mid myocardial bridge as described above Widely patent proximal dominant right coronary artery stent as described above with mild to moderate nonflow limiting distal disease Normal ejection fraction Normal LVEDP PLAN 1. Continue medical management for coronary disease 2. Patient was hypertensive during the procedure today. Perhaps patient's symptoms are related to hypertensive disease 3. Continue aggressive risk factor modification Electronically signed by : Levi Morrow MD 04/26/2024 15:20:14
[2024-04-26 08:55] LABS: Basophils # 0.1 K/mm3 (0-0.2); Eosinophils # 0.2 K/mm3 (0.0-0.4); Eosinophils % 3.3 % (0.1-12.0); Hematocrit 45.3 % (42.0-52.0); Hemoglobin 15.4 g/dL (14.1-18.0); Lymphocytes # 1.1 K/mm3 (0.7-4.5); Lymphocytes % 20.6 % (10-50); Mean Corpuscular HGB Conc 33.9 g/dL (31.8-35.4); Mean Corpuscular Volume 88.6 fl (80-94); Mean Platelet Volume 6.8 fl (7.4-10.4); Monocytes # 0.5 K/mm3 (0.1-1.0); Monocytes % 8.6 % (1.7-9.3); Neutrophils # 3.7 K/mm3 (1.8-7.8); Neutrophils % 66.5 % (37.0-80.0); Platelet Count 302 K/mm3 (142-424); Red Blood Count 5.12 M/mm3 (4.60-6.20); Red Cell Distribution Width 15.4 % (11.5-17.5); White Blood Count 5.5 K/mm3 (4.8-10.8)
[2024-04-26 09:05] LABS: Chloride 104 mmol/L (98-107)
[2024-04-26 09:06] LABS: Potassium 3.7 mmoL/L (3.5-5.1); Sodium 138 mmol/L (136-145)
[2024-04-26 09:09] LABS: Anion Gap 12.7 mEq/L (5-15); Blood Urea Nitrogen 12 mg/dl (9-20); Calcium 9.5 mg/dl (8.4-10.2); Carbon Dioxide 25 mmol/L (22.0-30.0); Creatinine Clearance Estimated 119 mL/min (50-200); Estimated Glomerular Filt Rate 86 ml/min (>60); GFR (African American) 105 ML/MIN (>60); Glucose 96 mg/dl (74-100)
[2024-04-26] MEDS: VERAPAMIL 2.5MG/ML 2ML VIAL 2.5 MG IV (10:19)
[2024-04-26] MEDS: NITROGLYCERIN 800MCG/8ML SYR (CATH LAB) 800 MCG IA (10:21)
[2024-04-26] MEDS: 0.9 % SODIUM CHLORIDE 500 ML 25 ML IV (10:21)
[2024-04-26] MEDS: HEPARIN 1,000 UNITS/500ML NS (CATH LAB) 3000 UNIT IV (10:21)
[2024-04-26] MEDS: MIDAZOLAM HCL 1MG/ML 5ML VIAL 1 MG IV (10:21)
[2024-04-26] MEDS: HEPARIN 1,000 UNITS/ML 10ML VIAL (CATH LAB) 10000 UNIT IV (10:21)
[2024-04-26] MEDS: diphenhydrAMINE 50MG/ML VIAL 50 MG IV (10:22)
[2024-04-26] MEDS: LIDOCAINE 1% 10ML MDV 20 ML IJ (10:22)
[2024-04-26] MEDS: FENTANYL 100MCG/2ML VIAL 50 MCG IV (10:22)
--- NOTE | 2024-04-26 11:10 | SUR.PHASEII ---
pt arrived to post op. radial band in place. pt awake, alert and oriented. lunch tray ordered at this time.
[2024-04-26] MEDS: IOPAMIDOL-370 (76%);100ML BOTTLE 50 ML IV (11:17)
== END 2024-04-26 13:19 | disposition home or self-care (01) ==
LOC: CATHLAB 08:26
PROVIDERS: PCP Nurse Practitioner Family; Visit Provider Internal Medicine
DX: I25.110 Atherosclerotic heart disease of native coronary artery with unstable angina pectoris (principal); R06.00 Dyspnea, unspecified; R93.1 Abnormal findings on diagnostic imaging of heart and coronary circulation; Z79.899 Other long term (current) drug therapy; Z95.5 Presence of coronary angioplasty implant and graft; I10 Essential (primary) hypertension
CPT/HCPCS: 80048; 85025; 93458; 99152; C1725; C1769; J1200; J1644; J2250; J3010; Q9967

== ENCOUNTER 2024-05-19 08:50 | Outpatient (CLI) | payer OTHER, SELFPAY ==
[2024-05-19 17:51] LABS: Adenovirus,PCR Not Detected (NotDetected); Bordetella Pertussis Not Detected (NotDetected); Chlamydophila Pneumoniae, PCR Not Detected (NotDetected); Coronavirus 19, PCR Not Detected (NotDetected); Coronavirus 229E Not Detected (NotDetected); Coronavirus NL63 Not Detected (NotDetected); Coronavirus OC43 Not Detected (NotDetected); Coronovirus HKU1,PCR Not Detected (NotDetected); Human Metapneumovirus Not Detected (NotDetected); Influenza A, PCR Not Detected (NotDetected); Influenza AH1, 2009 Not Detected (NotDetected); Influenza AH1, PCR Not Detected (NotDetected); Influenza AH3,PCR Not Detected (NotDetected); Influenza B, PCR Not Detected (NotDetected); Mycoplasma Pneumoniae, PCR Not Detected (NotDetected); Parainfluenza 1, PCR Not Detected (NotDetected); Parainfluenza 2, PCR Not Detected (NotDetected); Parainfluenza 3, PCR Not Detected (NotDetected); Respiratory Syncytial Virus Not Detected (NotDetected); Rhinovirus/Enterovirus Not Detected (NotDetected)
[2024-05-19 20:02] LABS: Parainfluenza 4, PCR Detected (NotDetected)
== END 2024-05-19 23:59 | disposition home or self-care (01) ==
LOC: LAB.DROPOF 05-22 10:30
PROVIDERS: PCP Nurse Practitioner Family; Visit Provider Nurse Practitioner Family
DX: R69 Illness, unspecified (principal); B34.8 Other viral infections of unspecified site
CPT/HCPCS: 87633

== ENCOUNTER 2024-06-20 10:43 | Outpatient (CLI) | payer OTHER, SELFPAY ==
--- NOTE | 2024-06-20 10:46 | CA_ITS ---
APPROVED REPORT EXAM: Comprehensive 2D, Doppler, and color-flow Echocardiogram [employer]: Merna Teague RVT Ht: 6 ft 0 in Wt: 211lbs BSA: 2.18 BP: 114/66 mmHg Indications: HFrEF, EF OF 45% ON 04/27,HTN,HLD,CAD 2D Dimensions IVSd 1.25 cm M: 0.6-1.2 LVEF (Visual) 59.70 % PWd 1.01 cm M: 0.6 - 1.2 LA Volume 58.70 mL LVDd 4.12 cm M: 4.2 - 5.9 LA Volume Index 26.93 mL/m2 (M/F) 16-34 LVDs 2.83 cm M: 2.5 - 4.0 M-Mode Dimensions RVDd 2.92 cm (0.9-2.6) LA Diam 3.86 cm (1.9-4.0) LVDd 4.24 cm (3.5-5.7) IVSd 1.52 cm (0.6-1.1) PWd 0.60 cm (0.6-1.1) EDV (Teich) 80.40 mL TAPSE 2.94 (<1.7) LV Diastology E Decel Time 283 (160-240 msec) E/A Ratio 0.7 Aortic Valve DELFINA Index 2.04 cm2/m2 AoV Peak Jarek. 124.0 (50-130 cm/s) AO Peak GR. 6.20 mmHg AO Mean GR. 3.00 (<5 mmHg) AO VTI 18.5 (18-25 cm) DELFINA (VTI) 4.55 (2.5-4.5 cm2) Mitral Valve MV E Max Jarek. 71.0 (40-130 cm/s) MV A Velocity 99.0 (40-130 cm/s) E/A Ratio 0.72 MV PHT 83.0 ms Pulmonary Valve PV Peak Velocity 103.0 (50-150 cm/s) Tricuspid Valve TR P. Velocity 231.00 cm/s RAP Estimate 10.00 mmHg RVSP 31.40 mmHg Left Ventricle The left ventricle is normal size. The left ventricular systolic function is normal. The left ventricular ejection fraction is within the normal range. There is increased LV wall thickness. There is normal LV segmental wall motion. Transmitral Doppler flow pattern suggests impaired LV relaxation. LVEF is 55%. Right Ventricle Right ventricle is mildly dilated. The right ventricular systolic function is normal. Atria Left atrium is mildly dilated. The right atrium size is normal. There is no Doppler evidence of interatrial shunt. Aortic Valve The aortic valve is mildly thickened. There is no aortic valvular stenosis. No aortic regurgitation is present. Mitral Valve The mitral valve is mildly thickened. No evidence of mitral valve stenosis. Trace mitral regurgitation. Tricuspid Valve Tricuspid valve is grossly normal in structure and function. Mild tricuspid regurgitation. RVSP is 20-25 mmHg. Pulmonic Valve The pulmonary valve is normal in structure. Trace pulmonic regurgitation. Great Vessels The aortic root is normal in size. The ascending aorta is not well-visualized. IVC is normal in size and collapses >50% with inspiration. Pericardium There is no pericardial effusion. Other Information Study Quality: Adequate Conclusion Normal biventricular systolic function. Mild RV dilation. Mild LA dilation. Mild TR. When directly compared to the prior study from 04/11/2024, the LVEF has improved and is now normal. Electronically signed by : Sara Pavon MD 06/21/2024 01:07:27
== END 2024-06-20 23:59 | disposition home or self-care (01) ==
LOC: RT 10:44
PROVIDERS: PCP Nurse Practitioner Family; Visit Provider Internal Medicine
DX: I10 Essential (primary) hypertension (principal); I25.110 Atherosclerotic heart disease of native coronary artery with unstable angina pectoris; Z95.5 Presence of coronary angioplasty implant and graft; E78.49 Other hyperlipidemia; R06.09 Other forms of dyspnea; R93.1 Abnormal findings on diagnostic imaging of heart and coronary circulation
CPT/HCPCS: 93306